=== PATIENT | female | born 1935 | race Caucasian/White ===

== ENCOUNTER → 2023-12-05 08:17 | Outpatient (REF) | payer OTHER, SELFPAY ==
[2023-12-05 09:18] LABS: ALT (SGPT) 18 U/L (0-35); AST (SGOT) 22 U/L (14-36); Albumin 4.1 g/dl (3.5-5.0); Alkaline Phosphatase 72 U/L (38-126); Blood Urea Nitrogen 18 mg/dl (7-17); Calcium 9.4 mg/dl (8.4-10.2); Carbon Dioxide 25 mmol/L (22-30); Chloride 108 mmol/L (98-107); Glucose 113 mg/dl (70-99); HDL Cholesterol 36 mg/dl; Iron 100 ug/dl (37-170); LDL Cholesterol, Calculated 170 mg/dl; Potassium 4.2 mmol/L (3.5-5.1); Sodium 138 mmol/L (135-145); Total Bilirubin 0.9 mg/dl (0.2-1.3); Total Cholesterol 230 mg/dl (50-199); Total Protein 6.3 g/dl (6.3-8.2); Triglyceride 121 mg/dl (10-149); Uric Acid 5.6 mg/dl (2.5-6.2); Very Low Density Lipoprotein 24 mg/dl (0-30); eGFR > 60.00
[2023-12-05 09:27] LABS: Percent Saturation 33 % (20-50); Total Iron Binding Capacity 296 ug/dl (265-497)
[2023-12-05 09:35] LABS: Vitamin D, 25-OH*** 93.8 ng/mL (30-80)
[2023-12-05 10:00] LABS: Ferritin 96.6 ng/ml (11.1-264.0)
[2023-12-07 01:28] LABS: Homocysteine 9 umol/L (0-15)
[2023-12-07 01:31] LABS: DHEA Sulfate 77 ug/dL (12-154)
[2023-12-07 15:33] LABS: CRP, Highly Sensitive 2.48 mg/L
[2023-12-09 02:35] LABS: Methylmalonic Acid <0.10 umol/L (0.00-0.40)
== END ==
LOC: REG 08:17
PROVIDERS: ATTENDING PHYSICIAN Internal Medicine Geriatric Medicine
DX: R42 Dizziness and giddiness (principal); C50.919 Malignant neoplasm of unspecified site of unspecified female breast; M85.80 Other specified disorders of bone density and structure, unspecified site; E78.2 Mixed hyperlipidemia; I10 Essential (primary) hypertension; E03.8 Other specified hypothyroidism; Z96.642 Presence of left artificial hip joint; I48.0 Paroxysmal atrial fibrillation; G47.30 Sleep apnea, unspecified; Z13.89 Encounter for screening for other disorder; K22.70 Barrett's esophagus without dysplasia; Z99.89 Dependence on other enabling machines and devices; I34.0 Nonrheumatic mitral (valve) insufficiency; Z78.9 Other specified health status; N87.9 Dysplasia of cervix uteri, unspecified; G62.9 Polyneuropathy, unspecified; H40.1123 Primary open-angle glaucoma, left eye, severe stage; Z91.81 History of falling; R26.89 Other abnormalities of gait and mobility; R53.1 Weakness
CPT/HCPCS: 36415; 80053; 80061; 82306; 82627; 82728; 83090; 83540; 83550; 83921; 84443; 84550; 86141

== ENCOUNTER → 2023-12-06 08:23 | Outpatient (REF) | payer OTHER, SELFPAY ==
[2023-12-06 09:04] LABS: Erythrocyte Sed Rate 2 mm/hour (0-20)
[2023-12-06 09:23] LABS: C-Reactive Protein < 5.00 mg/L (0.0-10.00)
[2023-12-06 09:40] LABS: Free T4 1.21 ng/dl (0.78-2.19)
[2023-12-07 12:11] LABS: Thyroglobulin Antibodies <0.9 IU/mL (0.0-4.0); Thyroid Peroxidase Ab (TPO) 1.3 IU/mL (0.0-9.0)
[2023-12-07 15:32] LABS: CRP, Highly Sensitive 2.63 mg/L
[2023-12-07 21:04] LABS: Homocysteine 10 umol/L (0-15)
[2023-12-07 21:13] LABS: DHEA Sulfate 83 ug/dL (12-154)
== END ==
LOC: REG 08:23
PROVIDERS: ATTENDING PHYSICIAN Internal Medicine Geriatric Medicine
DX: R42 Dizziness and giddiness (principal); C50.919 Malignant neoplasm of unspecified site of unspecified female breast; M85.80 Other specified disorders of bone density and structure, unspecified site; E78.2 Mixed hyperlipidemia; I10 Essential (primary) hypertension; E03.8 Other specified hypothyroidism; Z96.642 Presence of left artificial hip joint; I48.0 Paroxysmal atrial fibrillation; G47.30 Sleep apnea, unspecified; Z13.89 Encounter for screening for other disorder; K22.70 Barrett's esophagus without dysplasia; Z79.899 Other long term (current) drug therapy; I34.0 Nonrheumatic mitral (valve) insufficiency; Z78.9 Other specified health status; N87.9 Dysplasia of cervix uteri, unspecified; G62.9 Polyneuropathy, unspecified; H40.1123 Primary open-angle glaucoma, left eye, severe stage; Z91.81 History of falling; R26.89 Other abnormalities of gait and mobility; R53.1 Weakness
CPT/HCPCS: 36415; 82627; 83090; 83921; 84439; 85652; 86140; 86141; 86376; 86800

== ENCOUNTER → 2023-12-27 13:57 | Outpatient (REF) | payer OTHER, SELFPAY ==
[2023-12-27 14:46] LABS: % Basophils 0.4 % (0-2); % Immature Granulocytes 0.3 % (0-0.5); % Lymphocytes 31.1 % (20.5-51.1); % Monocytes 10.7 % (1.7-9.3); % Neutrophils 56.5 % (42.2-75.2); Absolute Eosinophils 0.1 10^3/uL (0-0.7); Absolute Lymphocytes 2.4 10^3/uL (1.2-3.4); Absolute Monocytes 0.8 10^3/uL (0.1-0.6); Absolute Neutrophils 4.4 10^3/uL (1.4-6.5); Hematocrit 38.5 % (37.0-47.0); Hemoglobin 12.6 g/dL (12.0-16.0); Mean Corp Hgb Conc. 32.7 g/dL (33.0-37.0); Mean Corpuscular Hgb 32.1 pg (27.0-31.0); Mean Platelet Volume 9.7 fL (7.4-10.4); Nucleated Red Blood Cells % 0 %; Platelet Count 216 10^3/uL (130-400); Red Blood Cell Count 3.93 10^6/uL (4.20-5.40); Red Cell Dist. Width 14.1 % (11.5-14.5); White Blood Cell Count 7.8 10^3/uL (4.8-10.8)
== END ==
LOC: RCS 13:57
PROVIDERS: ATTENDING PHYSICIAN Nurse Practitioner Family; FAMILY PHYSICIAN Internal Medicine Geriatric Medicine
DX: Z01.818 Encounter for other preprocedural examination (principal)
CPT/HCPCS: 36415; 85025; 93005

== ENCOUNTER → 2024-01-15 11:29 | Outpatient (REF) | payer OTHER, SELFPAY ==
[2024-01-15 13:44] LABS: TSH 0.03 uIU/ml (0.47-4.68)
== END ==
LOC: REG 11:29
PROVIDERS: ATTENDING PHYSICIAN Internal Medicine Geriatric Medicine
DX: E66.01 Morbid (severe) obesity due to excess calories (principal); C50.919 Malignant neoplasm of unspecified site of unspecified female breast; R42 Dizziness and giddiness; E78.2 Mixed hyperlipidemia; I10 Essential (primary) hypertension; E03.8 Other specified hypothyroidism; Z96.642 Presence of left artificial hip joint; I48.0 Paroxysmal atrial fibrillation
CPT/HCPCS: 36415; 84443

== ENCOUNTER → 2024-01-24 13:47 | Outpatient (REF) | payer OTHER, SELFPAY ==
[2024-01-24 15:52] LABS: TSH 1.69 uIU/ml (0.47-4.68)
== END ==
LOC: REG 13:47
PROVIDERS: ATTENDING PHYSICIAN Internal Medicine Geriatric Medicine
DX: R79.89 Other specified abnormal findings of blood chemistry (principal)
CPT/HCPCS: 36415; 84443

== ENCOUNTER → 2024-02-13 12:34 | Outpatient (REF) | payer OTHER, SELFPAY | LOC: WDC 12:34 | PROVIDERS: ATTENDING PHYSICIAN Family Medicine Geriatric Medicine; FAMILY PHYSICIAN Internal Medicine Geriatric Medicine | DX: Z12.31 Encounter for screening mammogram for malignant neoplasm of breast (principal) | CPT/HCPCS: 77063; 77067 ==

== ENCOUNTER 2024-03-13 08:10 | Outpatient (RCR) | payer OTHER, SELFPAY | END 2024-03-13 23:59 | disposition home or self-care (01) | LOC: RPT 08:10 | PROVIDERS: ATTENDING PHYSICIAN Internal Medicine Geriatric Medicine | DX: R26.89 Other abnormalities of gait and mobility (principal); R42 Dizziness and giddiness; Z73.6 Limitation of activities due to disability; Z91.81 History of falling | CPT/HCPCS: 97163; 97167; 97530 ==

== ENCOUNTER 2024-04-21 10:12 | Outpatient (RCR) | payer OTHER, SELFPAY | END 2024-04-21 23:59 | disposition home or self-care (01) | LOC: RPT 10:12 | PROVIDERS: ATTENDING PHYSICIAN Internal Medicine Geriatric Medicine | DX: R26.89 Other abnormalities of gait and mobility (principal); R42 Dizziness and giddiness; Z73.6 Limitation of activities due to disability; Z91.81 History of falling | CPT/HCPCS: 97110; 97112; 97116; 97530; 97535 ==

== ENCOUNTER → 2024-04-22 06:27 | Outpatient (REF) | payer OTHER, SELFPAY ==
[2024-04-22] MEDS: LEXISCAN 0.4 MG IV (08:58)
[2024-04-22 11:43] LABS: NT-proBNP 209 pg/ml
== END ==
LOC: RCS 06:27
PROVIDERS: ATTENDING PHYSICIAN Internal Medicine Geriatric Medicine
DX: I48.0 Paroxysmal atrial fibrillation (principal); E66.01 Morbid (severe) obesity due to excess calories; C50.919 Malignant neoplasm of unspecified site of unspecified female breast; R42 Dizziness and giddiness; M85.80 Other specified disorders of bone density and structure, unspecified site; E78.2 Mixed hyperlipidemia; I10 Essential (primary) hypertension; E03.8 Other specified hypothyroidism; Z96.642 Presence of left artificial hip joint; G47.30 Sleep apnea, unspecified; Z13.89 Encounter for screening for other disorder; K22.70 Barrett's esophagus without dysplasia; I34.0 Nonrheumatic mitral (valve) insufficiency; Z78.9 Other specified health status; N87.9 Dysplasia of cervix uteri, unspecified; G62.9 Polyneuropathy, unspecified; H40.1123 Primary open-angle glaucoma, left eye, severe stage; Z91.81 History of falling; R26.89 Other abnormalities of gait and mobility; R53.1 Weakness
CPT/HCPCS: 36415; 78452; 83880; 93017; A9500; J2785

== ENCOUNTER → 2024-04-29 15:59 | Outpatient (REF) | payer OTHER, SELFPAY | LOC: RCS 15:59 | PROVIDERS: ATTENDING PHYSICIAN Internal Medicine Geriatric Medicine | DX: I48.0 Paroxysmal atrial fibrillation (principal); E66.01 Morbid (severe) obesity due to excess calories; C50.919 Malignant neoplasm of unspecified site of unspecified female breast; R42 Dizziness and giddiness; M85.80 Other specified disorders of bone density and structure, unspecified site; E78.2 Mixed hyperlipidemia; I10 Essential (primary) hypertension; E03.8 Other specified hypothyroidism; Z96.642 Presence of left artificial hip joint; G47.30 Sleep apnea, unspecified; Z13.89 Encounter for screening for other disorder; Z99.89 Dependence on other enabling machines and devices; I34.0 Nonrheumatic mitral (valve) insufficiency; Z78.9 Other specified health status; N87.9 Dysplasia of cervix uteri, unspecified; G62.9 Polyneuropathy, unspecified; H40.1123 Primary open-angle glaucoma, left eye, severe stage; Z91.81 History of falling; R26.89 Other abnormalities of gait and mobility; R53.1 Weakness | CPT/HCPCS: 93306 ==

== ENCOUNTER → 2024-05-07 12:25 | Outpatient (REF) | payer OTHER, SELFPAY ==
[2024-05-07 13:32] LABS: C-Reactive Protein < 5.00 mg/L (0.0-10.00)
[2024-05-08 14:36] LABS: Lyme Antibody Screen, EIA Negative (Negative)
[2024-05-10 02:55] LABS: ANA, IgG Reflex to HEp-2 None Detected (None Detected)
== END ==
LOC: REG 12:25
PROVIDERS: ATTENDING PHYSICIAN Internal Medicine Rheumatology; FAMILY PHYSICIAN Internal Medicine Geriatric Medicine
DX: G62.9 Polyneuropathy, unspecified (principal); M81.0 Age-related osteoporosis without current pathological fracture; R26.81 Unsteadiness on feet; Z51.81 Encounter for therapeutic drug level monitoring
CPT/HCPCS: 36415; 84155; 84165; 84425; 86038; 86140; 86235; 86618

== ENCOUNTER 2024-05-22 11:43 | Outpatient (RCR) | payer OTHER, SELFPAY | END 2024-05-22 23:59 | disposition home or self-care (01) | LOC: RPT 11:43 | PROVIDERS: ATTENDING PHYSICIAN Internal Medicine Geriatric Medicine | DX: R42 Dizziness and giddiness (principal); Z91.81 History of falling; Z73.6 Limitation of activities due to disability | CPT/HCPCS: 97110; 97112; 97116; 97530; 97535 ==

== ENCOUNTER 2024-05-29 11:20 | Outpatient (RCR) | payer OTHER, SELFPAY | END 2024-05-29 23:59 | disposition home or self-care (01) | LOC: RPT 11:20 | PROVIDERS: ATTENDING PHYSICIAN Internal Medicine Geriatric Medicine | DX: R26.89 Other abnormalities of gait and mobility (principal); R42 Dizziness and giddiness; Z73.6 Limitation of activities due to disability; Z91.81 History of falling | CPT/HCPCS: 97110; 97112; 97530; 97535 ==

== ENCOUNTER → 2024-06-04 10:55 | Outpatient (REF) | payer OTHER, SELFPAY | LOC: RAD 10:55 | PROVIDERS: ATTENDING PHYSICIAN Internal Medicine Rheumatology; FAMILY PHYSICIAN Internal Medicine Geriatric Medicine | DX: M81.0 Age-related osteoporosis without current pathological fracture (principal) | CPT/HCPCS: 72072; 77080 ==

== ENCOUNTER → 2024-09-18 09:59 | Outpatient (REF) | payer OTHER, SELFPAY | LOC: WDC 09:59 | PROVIDERS: ATTENDING PHYSICIAN Family Medicine Geriatric Medicine; FAMILY PHYSICIAN Internal Medicine Geriatric Medicine | DX: N64.4 Mastodynia (principal); N63.11 Unspecified lump in the right breast, upper outer quadrant; Z85.3 Personal history of malignant neoplasm of breast | CPT/HCPCS: 76642; 77061; 77065 ==

== ENCOUNTER → 2024-12-02 08:08 | Outpatient (REF) | payer OTHER, SELFPAY ==
[2024-12-02 09:07] LABS: % Basophils 0.3 % (0-2); % Eosinophils 1.3 % (0-6); % Immature Granulocytes 0.2 % (0-0.5); % Lymphocytes 30.5 % (20.5-51.1); % Monocytes 8.1 % (1.7-9.3); % Neutrophils 59.6 % (42.2-75.2); Absolute Eosinophils 0.1 10^3/uL (0-0.7); Absolute Lymphocytes 1.8 10^3/uL (1.2-3.4); Absolute Monocytes 0.5 10^3/uL (0.1-0.6); Absolute Neutrophils 3.6 10^3/uL (1.4-6.5); Hemoglobin 13.1 g/dL (12.0-16.0); Mean Corp Hgb Conc. 33.6 g/dL (33.0-37.0); Mean Corpuscular Hgb 33.2 pg (27.0-31.0); Mean Platelet Volume 10.1 fL (7.4-10.4); Nucleated Red Blood Cells % 0 %; Platelet Count 194 10^3/uL (130-400); Red Blood Cell Count 3.94 10^6/uL (4.20-5.40); Red Cell Dist. Width 14.3 % (11.5-14.5)
[2024-12-02 09:22] LABS: ALT (SGPT) 21 U/L (0-35); AST (SGOT) 23 U/L (14-36); Albumin 5.1 g/dl (3.5-5.0); Alkaline Phosphatase 57 U/L (38-126); Blood Urea Nitrogen 24 mg/dl (7-17); Calcium 10.1 mg/dl (8.4-10.2); Carbon Dioxide 26 mmol/L (22-30); Chloride 105 mmol/L (98-107); Glucose 107 mg/dl (70-99); Potassium 4.3 mmol/L (3.5-5.1); Sodium 141 mmol/L (135-145); Total Bilirubin 1.5 mg/dl (0.2-1.3); Total Protein 7.2 g/dl (6.3-8.2); eGFR > 60.00
[2024-12-04 14:34] LABS: Albumin 4.72 g/dL (3.75-5.01); Alpha 1 Globulin 0.29 g/dL (0.19-0.46); Alpha 2 Globulin 0.75 g/dL (0.48-1.05); Free Kappa Light Chains,Quant 10.96 mg/L (3.30-19.40); Free Lambda Light Chains,Quant 1124.72 mg/L (5.71-26.30); IgA 30 mg/dL (68-408); IgG 645 mg/dL (768-1632); IgM 33 mg/dL (35-263); Immunofixation Electrophoresis IFE Done; Kappa/Lambda Fr Light Ratio 0.01 (0.26-1.65)
== END ==
LOC: REG 08:08
PROVIDERS: ATTENDING PHYSICIAN Internal Medicine Rheumatology; FAMILY PHYSICIAN Internal Medicine Geriatric Medicine; OTHER PHYSICIAN Internal Medicine Hematology & Oncology; REFERRING PHYSICIAN Internal Medicine Cardiovascular Disease
DX: M81.0 Age-related osteoporosis without current pathological fracture (principal); Z51.81 Encounter for therapeutic drug level monitoring; I48.0 Paroxysmal atrial fibrillation; C50.411 Malignant neoplasm of upper-outer quadrant of right female breast; D80.1 Nonfamilial hypogammaglobulinemia
CPT/HCPCS: 36415; 80053; 82784; 83521; 84155; 84165; 85025; 86334

== ENCOUNTER → 2025-02-17 12:26 | Outpatient (REF) | payer OTHER, SELFPAY ==
[2025-02-17 13:50] LABS: Calcium 10.1 mg/dl (8.4-10.2)
[2025-02-18 19:12] LABS: Intact PTH 32.4 pg/ml (13.6-85.8)
== END ==
LOC: REG 12:26
PROVIDERS: ATTENDING PHYSICIAN Internal Medicine Geriatric Medicine
DX: I48.0 Paroxysmal atrial fibrillation (principal); E66.01 Morbid (severe) obesity due to excess calories; C50.919 Malignant neoplasm of unspecified site of unspecified female breast; R42 Dizziness and giddiness; M85.80 Other specified disorders of bone density and structure, unspecified site; E78.2 Mixed hyperlipidemia; I10 Essential (primary) hypertension; E03.8 Other specified hypothyroidism; G47.30 Sleep apnea, unspecified; Z99.89 Dependence on other enabling machines and devices; I34.0 Nonrheumatic mitral (valve) insufficiency; G62.9 Polyneuropathy, unspecified; Z91.81 History of falling; R26.89 Other abnormalities of gait and mobility; R53.1 Weakness
CPT/HCPCS: 36415; 83970

== ENCOUNTER → 2025-02-17 12:58 | Outpatient (REF) | payer OTHER, SELFPAY | LOC: WDC 12:58 | PROVIDERS: ATTENDING PHYSICIAN Internal Medicine Hematology & Oncology | DX: Z12.31 Encounter for screening mammogram for malignant neoplasm of breast (principal); C50.411 Malignant neoplasm of upper-outer quadrant of right female breast | CPT/HCPCS: 77063; 77067 ==

== ENCOUNTER → 2025-03-24 08:55 | Outpatient (REF) | payer OTHER, SELFPAY ==
[2025-03-24 09:37] LABS: Hematocrit 39.5 % (37.0-47.0); Hemoglobin 13.4 g/dL (12.0-16.0); Mean Corp Hgb Conc. 33.9 g/dL (33.0-37.0); Mean Corpuscular Volume 98.8 fL (81.0-99.0); Nucleated Red Blood Cells % 0 %; Platelet Count 208 10^3/uL (130-400); Red Cell Dist. Width 14.6 % (11.5-14.5)
[2025-03-24 10:25] LABS: ALT (SGPT) 18 U/L (0-35); AST (SGOT) 19 U/L (14-36); Albumin 4.5 g/dl (3.5-5.0); Alkaline Phosphatase 56 U/L (38-126); Blood Urea Nitrogen 20 mg/dl (7-17); Calcium 9.3 mg/dl (8.4-10.2); Carbon Dioxide 22 mmol/L (22-30); Chloride 110 mmol/L (98-107); Glucose 122 mg/dl (70-99); Potassium 4.6 mmol/L (3.5-5.1); Sodium 142 mmol/L (135-145); Total Protein 6.8 g/dl (6.3-8.2); eGFR > 60.00
[2025-03-27 10:00] LABS: Albumin 4.21 g/dL (3.75-5.01); Free Kappa Light Chains,Quant 13.31 mg/L (3.30-19.40); Free Lambda Light Chains,Quant 1052.03 mg/L (5.71-26.30); Immunofixation Electrophoresis IFE Done; Kappa/Lambda Fr Light Ratio 0.01 (0.26-1.65); Total Protein-Electrophoresis 6.5 g/dL (6.3-8.2)
== END ==
LOC: REG 08:55
PROVIDERS: ATTENDING PHYSICIAN Internal Medicine Hematology & Oncology; FAMILY PHYSICIAN Internal Medicine Geriatric Medicine
DX: C50.411 Malignant neoplasm of upper-outer quadrant of right female breast (principal); M81.0 Age-related osteoporosis without current pathological fracture; D80.1 Nonfamilial hypogammaglobulinemia; D47.2 Monoclonal gammopathy
CPT/HCPCS: 36415; 80053; 82232; 82784; 83521; 84155; 84165; 85025; 86334

== ENCOUNTER → 2025-06-01 12:07 | Outpatient (REF) | payer OTHER, SELFPAY ==
[2025-06-01 12:55] LABS: Hematocrit 37.5 % (37.0-47.0); Hemoglobin 12.2 g/dL (12.0-16.0); Mean Corp Hgb Conc. 32.5 g/dL (33.0-37.0); Mean Corpuscular Volume 99.5 fL (81.0-99.0); Nucleated Red Blood Cells % 0 %; Platelet Count 190 10^3/uL (130-400); Red Cell Dist. Width 15.1 % (11.5-14.5)
[2025-06-01 13:56] LABS: ALT (SGPT) 18 U/L (0-35); AST (SGOT) 21 U/L (14-36); Albumin 4.6 g/dl (3.5-5.0); Alkaline Phosphatase 66 U/L (38-126); Blood Urea Nitrogen 24 mg/dl (7-17); Calcium 9.7 mg/dl (8.4-10.2); Carbon Dioxide 29 mmol/L (22-30); Chloride 107 mmol/L (98-107); Glucose 116 mg/dl (70-99); Potassium 4.8 mmol/L (3.5-5.1); Sodium 143 mmol/L (135-145); Total Protein 6.7 g/dl (6.3-8.2); eGFR > 60.00
== END ==
LOC: REG 12:07
PROVIDERS: ATTENDING PHYSICIAN Internal Medicine Geriatric Medicine
DX: I48.0 Paroxysmal atrial fibrillation (principal); E66.01 Morbid (severe) obesity due to excess calories; R42 Dizziness and giddiness; M85.80 Other specified disorders of bone density and structure, unspecified site; E78.2 Mixed hyperlipidemia; I10 Essential (primary) hypertension; E03.8 Other specified hypothyroidism; G47.30 Sleep apnea, unspecified; I34.0 Nonrheumatic mitral (valve) insufficiency; Z13.89 Encounter for screening for other disorder; G62.9 Polyneuropathy, unspecified; Z91.81 History of falling; R26.89 Other abnormalities of gait and mobility; R53.1 Weakness; I50.31 Acute diastolic (congestive) heart failure
CPT/HCPCS: 36415; 71046; 80053; 83880; 85025

== ENCOUNTER 2025-06-10 15:35 | Emergency (ER) | payer OTHER, SELFPAY ==
[2025-06-10 15:38] VITALS: BP 171/77
--- NOTE | 2025-06-10 17:01 | ED.GENMED ---
History of Present Illness
General
Chief Complaint: Head Injury
Time Seen by Provider: 06/10/25 17:00
History of Present Illness
History of Present Illness:
FOCUSED PAST MEDICAL HISTORY
- The patient has a history of A-fib on Eliquis
REVIEW OF OLD RECORDS
- The patient was seen here after a fall with head injury in September 2023 and at that time CAT scan of the brain was unremarkable
Note:
CHIEF COMPLAINT(S)
Pain and laceration to the head following a fall.
HISTORY OF PRESENT ILLNESS
The patient is an 89-year-old female who presented after a fall at home. The incident occurred as she was moving from the house through the garage to get into the car for a doctors appointment. The patient reports tripping and falling. She is on
anticoagulation therapy, reporting no immediate obvious bleeding based on a preliminary evaluation of the computed tomography (CT) scan, although radiologist confirmation is pending. There is a concern for a laceration on the scalp, which will
require cleaning and potential trimming of hair for proper care. The patient also experiences mild soreness on the upper left side of her chest, identified as a bruise, but she describes the pain as minor.
PHYSICAL EXAM
- General: Well appearing in no distress
- Head: There is a large amount of dried blood and scant amount of ongoing bleeding to the parietal anterior scalp, the laceration is irregular and measures approximately 5 cm
- C-spine: No midline c-spine tenderness; normal AROM of C-spine
- Back: Normal AROM thoracolumbar spine
- HEENT: Moist oral mucosa, no blood
- Cardiovascular: No murmurs, normal heart rate, regular rhythm, No chest wall tenderness
- Pulmonary: No respiratory distress, breath sounds are clear and equal
- Abdomen: Soft with no peritoneal signs, no tenderness
- Neurologic: Excellent strength all extremities, no coordination deficits
- Psychiatric: Appropriate mental status, normal insight and judgement
- Extremities: Nontender, no edema, moves all extremities equally
- Skin: No rash, no lesions, as above, there is also a focal area of ecchymosis to the left anterior chest wall
PLAN
- Await final radiological evaluation of the head CT.
- Assess and clean scalp laceration; may require hair trimming for proper wound care.
- Consider administration of a tetanus booster given the nature of the injury.
DIFFERENTIAL DIAGNOSIS
The Differential Diagnosis includes, in no particular order and is not limited to:
1. Scalp laceration
2. Contusion or minor trauma to the chest wall
3. Intracranial hemorrhage (awaiting final CT results)
4. Soft tissue injury
5. Rib fracture
6. Concussion
7. Cervical spine injury
8. Subdural hematoma
9. Skull fracture
10. Complications related to anticoagulation therapy.
RADIOLOGY
- CAT scan of the brain and C-spine personally reviewed and agree with radiologist interpretation as there is no acute traumatic injury
SUMMARY OF ENCOUNTER
The patient, an 89-year-old female, presented to the emergency department following a fall at home resulting in a scalp laceration. She is on anticoagulation therapy with apixaban (Eliquis). A CT scan was conducted, showing no signs of intracranial
injury, cervical spine injury, or skull fracture. The laceration on her scalp was oozing slightly, and she reported minor bruising on the upper left side of her chest. I placed multiple stitches to close the laceration, and provided instructions on
wound care and pressure application to manage the bleeding. Given her anticoagulation therapy, I advised her to hold apixaban for today and resume it the following day.
PLAN
- Monitor the scalp laceration and maintain pressure to manage bleeding.
- Resume apixaban (Eliquis) the following day as per anticoagulation therapy.
- Consider contacting a neighbor for assistance in getting home, if necessary.
- Consider use of an essie wrap around the chin for added pressure on the wound site.
INDEPENDENT REVIEW OF LABS AND INTERPRETATION OF TESTS
My independent review of the CT scan indicates no intracranial injury, cervical spine injury, or skull fracture.
PROCEDURES
- Laceration repair with multiple stitches to the scalp.
PATIENT EDUCATION AND COUNSELING
The patient was advised on proper wound care, including applying pressure to the bleeding site and using an essie wrap if needed. Counseled on the temporary holding of apixaban today and resuming it the next day.
FOLLOW-UP INSTRUCTIONS
Follow up with primary care physician for wound assessment and management. Contact the office immediately to schedule an appointment if needed.
MEDICATION RECONCILIATION
- Hold apixaban (Eliquis) for today and resume the normal dosing schedule the following day.
MEDICAL DECISION MAKING
- Complexity of Data Reviewed: Chronic conditions affecting care including anticoagulation therapy. Differential diagnoses include scalp laceration, contusion or minor trauma to the chest wall, and intracranial hemorrhage (which was ruled out).
- Data:
Category 1:
My independent interpretation of the CT scan showed no acute intracranial injury.
Category 3:
Discussion of management was contemplated regarding whether to hold apixaban due to ongoing bleeding, with the decision to hold for today and resume tomorrow.
-Risk:
Prescription drug management with apixaban requiring temporary adjustment. Consideration of Admission/Observation: Escalation of care including admission/observation was considered due to anticoagulation therapy and potential complications, but the
patient was deemed safe for outpatient management with close follow up. Work-up was reassuring; it did not reveal any acute life/organ-threatening processes. The patients symptoms were well controlled upon reevaluation; reexamination was reassuring,
vitals stable; the patient was agreeable with discharge and reliable for follow-up.
DIAGNOSIS
- Scalp laceration (ICD-10: S01.01XA)
- Contusion of chest wall (ICD-10: S20.219A)
- Observation of anticoagulation therapy complication (ICD-10: T45.515A)
Despite the closure with sutures, some oozing of blood persists, will place pressure dressing and add TXA to the affected airway. I did use lidocaine with epi before closing the wound. She will hold her next dose of Eliquis.
Past History
Past History
ED Past Medical History: Arrthythmia (Atrial fibrillation), Asthma, HTN, Hypercholesterolemia and Other (Patient has a history of sleep apnea, atrial fibrillation, asthma, or coma, osteoporosis, and benign positional vertigo)
ED Past Surgical History: Tonsilectomy and Other (Patient has also had a hernia repair, tubal ligation, D&C)
Social History
Tobacco: Former smoker
Alcohol: Occasional
Drug: None
Personal:
Living: with family
Family History
Family History: Negative Diabetes, Hypertension or CAD
Phy Exam
Physical Exam
Physical Exam:
See HPI
Course
Orders/Labs/Results
Orders:
Orders
06/10/25 15:39
CT Cervical Spine W/o Iv Contr Urgent
Comment:
Reason For Exam: Trauma
CT Head W/o Iv Contrast Urgent
Comment:
Reason For Exam: Head injury on eliquis
06/10/25 17:52
Tetanus/Diphth/Acelpertussis [Adacel] 0.5 ml IM .ONCE ONE
Vital Signs
Initial and Last Documented VS:
Initial Vital Signs
Temp Pulse Resp BP Pulse Ox
36.9 C 90 16 171/77 97
06/10/25 15:38 06/10/25 15:38 06/10/25 15:38 06/10/25 15:38 06/10/25 15:38
Last Documented Vital Signs
Temp Pulse Resp BP Pulse Ox
36.9 C 85 24 181/69 96
06/10/25 15:38 06/10/25 17:45 06/10/25 17:45 06/10/25 17:26 06/10/25 17:45
Procedures
Laceration Closure
Anterior Head:
Status of Wound: clean
Description of Wound Edges: ragged
Preparation: cleaned with saline
Anesthesia: 1% Lidocaine with epi
Revision/Debridement: routine- no revision
Wound exploration: explored to base- no FB
Type of Closure: single layer closure
Skin Closure Material: 5-0 prolene
Number of sutures: 8
*Pulse Oximetry
SaO2: 97
Oxygen Mode of Delivery: Room air
Patient hypoxic: no
*Critical Care Note
Total Time (30-74mins, 75-104mins- exclusive of procedures): Not Applicable
ED Attending Note
-
Portions of this chart may have been created with voice recognition software.� Occasional wrong word or��sound alike� substitutions may have occurred due to the inherent limitations of voice recognition software.
Discharge Plan
Departure
Patient Disposition: Home (Routine Discharge)
Date of Disposition: 06/10/25
Time of Disposition: 18:07
Patient with high blood pressure during this ER visit?: Yes
Discharge Problem:
Laceration of scalp
Instructions: Laceration Repair With Stitches (DC), BLOOD PRESSURE
Prescriptions:
No Action
wajljjksyxs-kosuhomde-hqo C-Mn 1 TAB tablet
1 tab PO BID
Centrum Silver Ultra Women's 1 EACH tablet
1 ea PO DAILY
omeprazole 20 MG tablet,delayed release (DR/EC)
20 mg PO DAILY
cholecalciferol (vitamin D3) 1,000 UNITS tablet
1,000 units PO DAILY
turmeric root extract 500 MG capsule
1,000 mg PO DAILY
Eliquis 5 MG tablet
5 mg PO BID
magnesium oxide 400 MG tablet
400 mg PO QPM
PROLIA:
1 dose SC [id number]
Prevagen 1 CAPSULE Capsule
1 cap PO DAILY
famotidine [Pepcid AC] 20 MG tablet
20 mg PO QPM
Rocklatan 2.5 ML drops
1 drp BOTH EYES HS
calcium 600 mg Capsule
600 mg PO DAILY
anastrozole 1 mg Tablet
1 mg PO QPM
omega 3-vya-gak-fish oil [Fish Oil] 1,200 (144-216) mg Capsule
1 cap PO BID
lutein
1 tab PO QPM
albuterol sulfate 90 mcg/actuation Hfa Aerosol Inhaler
2 inh INHALATION PRN PRN (Reason: SOB, Wheezes)
Patient Comments:
no longer needs
Referrals:
Jamie Mireles MD [Family Provider, Internal Medicine]
Activity Restrictions/Additional Instructions:
CAT scan of your brain and cervical spine showed no sign of serious injury. I placed 8 stitches in your scalp. This should be removed by your primary care doctor in approximately 7 days. Return here if worse or other concerns.
Discharge Date and Time
Print Language: SERBIAN
[2025-06-10 17:26] VITALS: BP 181/69
[2025-06-10 18:00] VITALS: BP 159/65
[2025-06-10] MEDS: ADACEL 0.5 ML IM (18:11)
== END 2025-06-10 19:54 | disposition home or self-care (01) ==
LOC: EMR 15:35
PROVIDERS: EMERGENCY PHYSICIAN Emergency Medicine; FAMILY PHYSICIAN Internal Medicine Geriatric Medicine
DX: S01.01XA Laceration without foreign body of scalp, initial encounter (principal); I48.91 Unspecified atrial fibrillation; I10 Essential (primary) hypertension; E78.00 Pure hypercholesterolemia, unspecified; J45.909 Unspecified asthma, uncomplicated; G47.30 Sleep apnea, unspecified; M81.0 Age-related osteoporosis without current pathological fracture; Z23 Encounter for immunization; Z79.01 Long term (current) use of anticoagulants; Z87.891 Personal history of nicotine dependence; W01.0XXA Fall on same level from slipping, tripping and stumbling without subsequent striking against object, initial encounter; Y93.01 Activity, walking, marching and hiking; Y92.008 Other place in unspecified non-institutional (private) residence as the place of occurrence of the external cause
CPT/HCPCS: 99284; 12002; 90471; 70450; 72125; 90715

== ENCOUNTER → 2025-06-16 13:58 | Outpatient (REF) | payer OTHER, SELFPAY | LOC: HWRCS 13:58 | PROVIDERS: ATTENDING PHYSICIAN Internal Medicine Geriatric Medicine | DX: I48.0 Paroxysmal atrial fibrillation (principal); E66.01 Morbid (severe) obesity due to excess calories; R42 Dizziness and giddiness; M85.80 Other specified disorders of bone density and structure, unspecified site; E78.2 Mixed hyperlipidemia; I10 Essential (primary) hypertension; E03.8 Other specified hypothyroidism; G47.30 Sleep apnea, unspecified; I34.0 Nonrheumatic mitral (valve) insufficiency; Z13.89 Encounter for screening for other disorder; G62.9 Polyneuropathy, unspecified; Z91.81 History of falling; R26.89 Other abnormalities of gait and mobility; R53.1 Weakness; I50.31 Acute diastolic (congestive) heart failure | CPT/HCPCS: 93306 ==

== ENCOUNTER 2025-06-19 08:15 | Day surgery (SDC) | payer OTHER, SELFPAY ==
[2025-06-19] VITALS (19 sets, daily range): BP systolic 98–157; BP diastolic 40–127; BMI 31.9
[2025-06-19] MEDS: SOLU-CORTEF 100 MG IV (09:04)
[2025-06-19] MEDS: BENADRYL 25 MG IV (09:05)
[2025-06-19] MEDS: PEPCID 20 MG IV (09:24)
[2025-06-19] MEDS: ZOFRAN 4 MG IV (09:25)
[2025-06-19] MEDS: LASIX 20 MG IV (13:38)
--- NOTE | 2025-06-19 15:55 | ITS.CL.PACE ---
[employer] - Pacemaker Implant
Pacemaker Implant
Procedure Report:
Date of Procedure: June 19, 2025.
Procedure: Pacemaker Implantation. Left upper extremity venogram.
Indication: The pacemaker is for the treatment of nonreversible symptomatic bradycardia due to sinus node dysfunction. Known PAF with RVR that is exacerbating HFpEF and mitral regurgitation.
Performing physician: Dheeraj Chun MD, [facility].
Implants:
Pulse Generator: Medtronic; Model# [id number]; Serial# [id number].
RA Lead: Medtronic; Model# 5076-45cm; Serial# [id number].
RV Lead: Medtronic; Model# 3830-69cm; Serial# [id number].
Technique: A time out was performed. A 10 mL upper extremity venogram demonstrated patent the left axillary, cephalic, and subclavian veins. The procedure site was identified. The patient was anesthetized by the anesthesia service. Preoperative
cefazolin was administered. The patient was prepped and draped in the usual fashion. Local anesthetic was applied to the left prepectoral subcutaneous tissue. A 3 inch incision was made along the left deltopectoral groove. Dissection was carried to
the fascia. The left cephalic vein was easily isolated and proximal and distal control with 2-0 Vicryl suture. Using a micropuncture needle to access the cephalic vein under direct visualization a wire was advanced into the central circulation. A 7
Fr introducer was placed to allow two 0.35 J wires to be advanced. The leads were introduced with hemostatic peel away introducer sheaths. The RV lead was placed using utilizing the Lendio His delivery catheter ([id number]) that was advanced to the
left bundle area as confirmed by fluoroscopy in the JAYNA and CONDON projections. The lead tip was advanced. PVC morphology was reviewed. When a satisfactory location was identified (W pattern observed) the lead was screwed into position with serial
turns. Septal engagement was confirmed with gentle torque applied to the guide sheath. After each series of turns (2-3) unipolar sensed morphology and impedance, and paced morphology of V1 was analyzed. The lead was further advanced until
satisfactory morphology and electrical characteristics were confirmed. The RV lead was placed in the second location evaluated. The long guiding sheath was cut and removed from the RV without change in lead position, impedance, sensing, or capture.
The ventricular lead was secured to the pectoralis muscle and fascia with two 0-silk sutures. The atrial lead was placed in the right atrial appendage. 8 volt pacing from each lead did not capture the diaphragm. The atrial leads was secured to the
pectoralis muscle and fascia. A subcutaneous pocket was created with Bovie cautery. Hemostasis was excellent. The leads were appropriately attached to the device. The pocket was irrigated with antibiotic solution. The device and leads were placed in
the pocket. The incision was closed in three layers with absorbable suture. Steri-strips and a silver impregnated dressing were placed. Estimated blood loss was approximately 5 ml. There were no complications. Fluoroscopy time 3.5 minutes and DAP
1.39 GyCM2. The device was then interrogated after skin closure.
Lead Analysis:
RA lead: P: 0.9 mV; Threshold: 1.3 V @ 0.4 ms; Impedance: 418 ohms.
RV lead (bipolar): R: 10.1 mV; Threshold: 0.5 V @ 0.4 ms; Impedance: 684 ohms.
RV lead (unipolar): R: 14.9 mV; Threshold: 0.5 V @ 0.4 ms; Impedance: 741 ohms.
Paced QRS characteristics (both unipolar and bipolar): V1 has Qr morphology and measures 100 ms in duration, LVAT (stim to peak V5/V6) is 60 ms, and R peak V1 to R peak V6 is 46 ms.
Final Programming: MVP (AAIR to DDDR) 60-130 bpm.
Conclusion: Uncomplicated Medtronic pacemaker implant. The pacing system is MRI conditional.
Recommendation: Routine post pacemaker care.
cc: Jamie Mireles MD.
--- NOTE | 2025-06-19 16:07 | CM ---
Referral sent to [facility]. Plan [facility]
--- NOTE | 2025-06-19 17:55 | PTCARENOTE ---
Received pt S/P pacemaker insertion. VSS, monitor showing SR. Ambulated to bathroom with assistance. Left chest pressure dressing c/d/i, +cms to left hand/fingers, immobilizer intact. Assisted to chair, oriented to room, call chavez in reach.
[2025-06-19] MEDS: ANCEF 5 IV (19:39)
[2025-06-19] MEDS: PACERONE 200 MG PO (19:39)
[2025-06-19] MEDS: TOPROL XL PO (21:03)
[2025-06-20] VITALS (9 sets, daily range): BP systolic 84–132; BP diastolic 48–72; PULSE 91; O2SAT 94; BMI 31.3
--- NOTE | 2025-06-20 01:24 | PTCARENOTE ---
Assumed care of patient at change of shift. Pt AAOx3, VSS, denies any pain or discomfort. Ambulates w/ standby assist and has personal cane at bedside. Denies any dizziness. Tele remains NSR. HR in the 60-80's. Left anterior chest w/ pressure
dressing in place and left arm in immobilizer. Educated patient about activity restrictions, and verbalized understanding. Afib packet provided. Fall risk precautions maintained, pt rings approp. Call chavez within reach.
[2025-06-20] MEDS: ANCEF 5 IV (03:56)
[2025-06-20] MEDS: TYLENOL 650 MG PO (04:27)
[2025-06-20 04:32] LABS: Hematocrit 32.3 % (37.0-47.0); Hemoglobin 10.7 g/dL (12.0-16.0); Mean Corp Hgb Conc. 33.1 g/dL (33.0-37.0); Mean Corpuscular Volume 99.1 fL (81.0-99.0); Platelet Count 200 10^3/uL (130-400); Red Cell Dist. Width 15.4 % (11.5-14.5)
[2025-06-20 04:59] LABS: Blood Urea Nitrogen 29 mg/dl (7-17); Calcium 9.7 mg/dl (8.4-10.2); Carbon Dioxide 26 mmol/L (22-30); Chloride 108 mmol/L (98-107); Estimated Creatinine Clearance 48 ml/min; Glucose 106 mg/dl (70-99); Potassium 4.0 mmol/L (3.5-5.1); Sodium 141 mmol/L (135-145); eGFR > 60.00
--- NOTE | 2025-06-20 08:12 | W.PN.CD ---
Addendum entered and electronically signed by Pritesh Sharif MD 06/20/25 14:13:
Echocardiogram showed a small anterior pericardial effusion with no echocardiographic evidence of tamponade. Patient's lightheadedness improved. She is stable for discharge. Will arrange outpatient echo in 2 weeks for follow-up.
Addendum entered and electronically signed by Pritesh Sharif MD 06/20/25 10:06:
I saw and evaluated the patient, and I provided the substantive portion of the medical decision making.
I reviewed and agree with the note by DELORES and it accurately reflects our care.
I personally performed the medical decision making of the this encounter and my assessment and plan is below:
89-year-old female with paroxysmal atrial fibrillation with RVR on Eliquis, HFpEF, and sick sinus syndrome who is s/p PPM on 06/19/2025. This morning she is reporting some pleuritic back pain. She walked with PT and felt lightheaded. BP dropped to
80s/50s. She is attributing this to getting metoprolol this morning which is a new medication for her.
Physical exam: RRR, no murmurs or rubs, clear lungs, no lower extremity edema, pacemaker site is soft without swelling or erythema
Sick sinus syndrome s/p PPM: We will get an echocardiogram to check for effusion given her pleuritic pain and hypotension this morning. Suspect that hypotension may have been iatrogenic from metoprolol. If echocardiogram does not show significant
effusion and her symptoms improve, she could be discharged later today off of metoprolol.
Paroxysmal A-fib with RVR: Continue amiodarone 200 mg twice daily. Hold metoprolol for symptomatic hypotension. Continue Eliquis.
HFpEF: Lasix increased to twice daily dosing with BMP check in 1 week.
Original Note:
Today's Communication / Plan
-
-pacemaker site looks good. Activity restrictions and site care reviewed. Resume Eliquis tomorrow AM. She is now on amiodarone, metoprolol, and increased Lasix dosing. BMP in 1 week. Follow-up in office arranged.
Impression / Plan
-
89 y/o female (Dr. Chun patient) with PAF with RVR on Eliquis as OP, HFpEF, and SSS who is now s/p PPM 06/19/25.
SSS:
-patient with nonreversible symptomatic bradycardia due to sinus node dysfunction. Known PAF with RVR that is exacerbating HFpEF and mitral regurgitation.
-now s/p PPM with Dr. Chun 06/19/25, [employer]tronic- left chest site looks good- no hematoma- we reviewed activity restrictions and site care- follow-up in our office arranged
-EKG , CXR, and tele stable
PAF with RVR:
-now on amiodarone 200 mg PO BID and metoprolol 50 mg PO BID
-resume Eliquis tomorrow AM
HFpEF: chronic
-lasix increased to BID dosing, with BMP check in 1 week- slip provided at d/c.
Subjective:
-Reports some mild chest and back ache, but thinks its musculoskeletal from being scrunched in the bed. Improving with sitting up on side of bed.
Physical Exam
Vital Signs/Labs
Vital Signs
Temp Pulse Resp BP Pulse Ox
98.2 F 80 18 132/60 92
06/20/25 06:39 06/20/25 06:39 06/20/25 06:39 06/20/25 04:02 06/20/25 06:39
06/19/25 06/20/25 06/21/25
06:59 06:59 06:59
Actual Weight 80.1 kg
06/20/25 04:17
06/20/25 04:17
Physical Exam
Constitutional: No acute distress
EENT: Anicteric
Cardiovascular: Rhythm & rate is regular
Respiratory: Respiratory effort normal and Lungs clear to auscul.
Neuro/Psych: AO x 3
Other: Cardiac Device Site (no hematoma, dressing CDI)
Data Reviewed
-
Date of Service: June 20, 2025
EKG: Tracing Personally Visualized and interpreted (NSR) and Other (tele NSR)
Labs: Labs Reviewed by me
[2025-06-20] MEDS: LASIX 20 MG PO (08:17)
[2025-06-20] MEDS: PACERONE 200 MG PO (08:17)
[2025-06-20] MEDS: TOPROL XL 50 MG PO (08:18)
[2025-06-20] MEDS: PROTONIX 40 MG PO (08:18)
--- NOTE | 2025-06-20 12:21 | W.DS.TRANS ---
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
-
Discharge Instructions:
Discharge Diagnosis/Procedures Pacemaker implant
Diet Low Sodium,Restrict fluids to 64 oz
Activity Other activity
Additional Activity see activity restriction sheet attached
Driving Restrictions No driving for 1 week
Bathing Restrictions OK to Shower
Blood Work BMP in 1 week- results to Dr. Chun- slip to be
given at d/c
Specialty Instructions Weigh Daily
Instructions:
Stand-Alone Forms: DC Inst - Implanted Device
Changes to Home Medications: Yes
Discharge Medications:
DC Medications w/original date entered in [facility]
vcatlpufvrc-pglmxneis-uxz C-Mn 750 mg-600 mg-55 mg-5 mg tablet 1 tab PO BID 08/12/10
acbomvok-unvkigx-gilj-lutein tablet (Centrum Silver Ultra Women's tablet) 1 ea PO DAILY 08/12/10
omeprazole 20 mg tablet,delayed release 20 mg PO DAILY 11/13/11
PROLIA: 1 dose SC [id number] 03/07/22
Prevagen 1 cap PO DAILY 03/07/22
cholecalciferol (vitamin D3) 25 mcg (1,000 unit) tablet 1,000 units PO DAILY 03/07/22
magnesium oxide 400 mg PO QPM 03/07/22
famotidine 20 mg tablet (Pepcid AC) 20 mg PO QPM 03/10/22
netarsudil 0.02 %-latanoprost 0.005 % eye drops (Rocklatan) 1 drp BOTH EYES HS 03/10/22
albuterol sulfate 90 mcg/actuation aerosol inhaler 2 inh inhalation PRN PRN SOB, Wheezes 08/02/22
omega 6-rgc-coc-fish oil 1,200 mg (144 mg-216 mg) capsule (Fish Oil) 1 cap PO BID 08/02/22
amiodarone 200 mg tablet (Pacerone) 200 mg PO BID #60 tabs 06/19/25
dorzolamide 2 % eye drops 1 drp ophthalmic (eye) TID 06/19/25
furosemide 20 mg tablet 20 mg PO BID AT 0800,1600 #60 tabs 06/19/25
latanoprost 0.005 % eye drops (Xalatan) 1 drp ophthalmic (eye) QPM 06/19/25
netarsudil 0.02 % eye drops 1 drp ophthalmic (eye) QPM 06/19/25
apixaban 5 mg tablet (Eliquis) 5 mg PO BID #0 tabs 06/20/25 (resume 06/21/25 in AM)
Home Medication Changes
amiodarone added, lasix increased
Pending Results: Yes
--- NOTE | 2025-06-20 13:43 | PTCARENOTE ---
Pt c/o feeling 'lightheaded' this morning. BP was low after having Metoprolol. Pt worked with PT, walked in [place]. Pt had echo today, prior to discharge, Pt was feeling better. Metoprolol was d/c'd by Dr Sharif. Pt's daughter will be staying with
her until June 27, as per Pt.
== END 2025-06-20 14:25 | disposition home or self-care (01) ==
LOC: CATH 08:15
PROVIDERS: Nurse Practitioner; ATTENDING PHYSICIAN Internal Medicine Cardiovascular Disease; FAMILY PHYSICIAN Internal Medicine Geriatric Medicine
DX: I49.5 Sick sinus syndrome (principal); I48.20 Chronic atrial fibrillation, unspecified; I11.0 Hypertensive heart disease with heart failure; I50.33 Acute on chronic diastolic (congestive) heart failure; J45.909 Unspecified asthma, uncomplicated; K21.9 Gastro-esophageal reflux disease without esophagitis; G47.33 Obstructive sleep apnea (adult) (pediatric); M81.0 Age-related osteoporosis without current pathological fracture; E78.5 Hyperlipidemia, unspecified; D75.89 Other specified diseases of blood and blood-forming organs; I34.0 Nonrheumatic mitral (valve) insufficiency; Z79.01 Long term (current) use of anticoagulants; Z79.899 Other long term (current) drug therapy; I48.0 Paroxysmal atrial fibrillation
CPT/HCPCS: 33208; 93325; 93321; 93308; 71045; 80048; 85027; 93005; 97116; 97163; C1769; C1785; C1887; C1898; Q9967

== ENCOUNTER 2025-06-22 18:06 | Inpatient (IN) | payer OTHER, SELFPAY ==
[2025-06-22] VITALS (10 sets, daily range): BP systolic 82–134; BP diastolic 56–88; BMI 30.5; BMI 29.3
--- NOTE | 2025-06-22 15:29 | ED.GENMED ---
History of Present Illness
<Abhijeet Lopez, DO - Last Filed: 06/22/25 21:18>
General
Chief Complaint: Weakness
Source: patient and ambulance crew
Exam Limitations: none
Time Seen by Provider: 06/22/25 15:28
Nursing documentation reviewed up to this point in time: agreed with
<Shana Reyna COMPUTER HARDWARE DEVELOPER - Last Filed: 06/22/25 17:21>
History of Present Illness
History of Present Illness:
89-year-old female with history of asthma, sleep apnea uses CPAP, A-fib on Eliquis, HLD, GERD, breast cancer with lumpectomy, pacemaker placed 3 days ago. She states for the past 2 days she has felt lightheaded, especially when she stands up, has
developed general body aches, bilateral shoulder pains, mid back ache, and mild nausea, no vomiting. Has felt more SOB than usual past 2 days. On arrival, RN reports pulse ox of 90%, placed on 2L NC O2 and now 96%.
Past History
<Abhijeet Lopez, DO - Last Filed: 06/22/25 21:18>
Past History
ED Past Medical History: Arrthythmia (Atrial fibrillation), Asthma, HTN, Hypercholesterolemia and Other (Patient has a history of sleep apnea, atrial fibrillation, asthma, or coma, osteoporosis, and benign positional vertigo)
ED Past Surgical History: Tonsilectomy and Other (Patient has also had a hernia repair, tubal ligation, D&C)
Social History
Tobacco: Former smoker
Alcohol: Occasional
Drug: None
Personal:
Living: with family
Family History
Family History: Negative Diabetes, Hypertension or CAD
Review of Systems
<Shana Reyna, COMPUTER HARDWARE DEVELOPER - Last Filed: 06/22/25 17:21>
Review of Systems
Allergies reviewed?: Yes
All Other Systems: ROS reviewed and negative except as documented in HPI and ROS
Constitutional: Reports fatigue; Denies fever or chills
ABD/GI: Reports constipated (She has been constipated and she took warm prune juice last night and had 2 very good bowel movements today, she thinks her constipation is what has caused her nausea. Denies nausea at this time)
Phy Exam
<Shana Reyna, COMPUTER HARDWARE DEVELOPER - Last Filed: 06/22/25 17:21>
Physical Exam
Physical Exam:
GENERAL: No acute distress. A&Ox3.
CONSTITUTIONAL: Afebrile.
EYES: clear, conjunctivae normal
ENMT: moist mucus membranes, Pharynx nl
RESPIRATORY: Regular respirations, nonlabored, lungs clear. Pulse ox 90% on arrival, placed on 2 L nasal cannula and improved to 96%.
CARDIOVASCULAR: Irregular rhythm, heart rate in the 120s A-fib, no murmurs, no rubs.
GI: Soft, nontender, normal BS
MUSCULOSKELETAL: Moves with ease. Well perfused. No edema
SKIN: Warm, dry, pink
PSYCH: Normal mood and affect. Well kept, interactive and appropriate
NEUROLOGIC: Awake, alert and oriented. No focal neurological deficits
Course
<Abhijeet Lopez, DO - Last Filed: 06/22/25 21:18>
Orders/Labs/Results
Orders:
Orders
06/22/25 Breakfast
Regular
At Your Request: Full Participation
06/22/25 15:18
Electrocardiogram (*1) Urgent
Reason for Study: Shortness of Breath
06/22/25 15:19
EKG- Treatment ONCE
C-Reactive Protein Urgent
Comment: ADD ON
Complete Blood Count/With Diff Urgent
Comprehensive Metabolic Panel Urgent
NT-proBNP Urgent
Comment: ADD ON
Troponin I Urgent
06/22/25 15:39
CR Chest - 2 Views Urgent
Comment:
Reason For Exam: Sob, lightheaded, recent pacemaker
06/22/25 15:48
Influenza A+B Rapid Molecular Urgent
PHONG Source: Nasal Swab
Specimen Description:
06/22/25 15:49
COVID-19 Antigen Urgent
Source: Nasal Swab
06/22/25 15:53
Add On- LAB Urgent
Tests Added?: BNP
06/22/25 16:05
Echo Follow-up Study Stat
Reason for Study: Pericardial effusion
06/22/25 16:40
0.9% Sodium Chloride 500 ml [Nss] 500 ml IV BOLUS
06/22/25 17:00
Colchicine 0.6 mg PO DAILY
06/22/25 17:02
Add On- LAB Routine
Tests Added?: ESR, CRP
06/22/25 17:08
Piperacillin/Tazo 4.5 Gram [Zosyn] 4.5 gram in 100 ml IV NOW
06/22/25 17:15
CT Chest PE Study Urgent
Comment:
Reason For Exam: short of breath
06/22/25 17:31
Blood Culture Q30M
PHONG Source: Blood/Venous
Specimen Description:
Blood Culture Q30M
PHONG Source: Blood/Venous
Specimen Description:
06/22/25 17:42
Admit/Transfer Patient As Directed
Co-Sign Provider:
Level of Care: Inpatient admission
Assign to:: Telemetry
Physician / Group: jose f tobias
Diagnosis: acute hypoxia
Reason for Telemetry: Arrhythmia
Date to Stop Telemetry: 06/25/25
Time to Stop Telemetry: 11:00
Reason for Hospitalization: acute hypoxia
Expected length of stay greater than two midnights?: Yes
ELOS- Estimated Length of Stay in days: 3
I certify the patient meets the requirements for IP care: Yes
PRN Pain Medication Management As Directed
May give lesser potent ordered pain med per pt: Yes
preference::
Protocol:: Medication orders for pain may be administered in a
manner that supports deferring to patient preference
when the pt is:
- Requesting an ordered lesser potent pain medication.
Least to most potent pain medications are defined
as: acetaminophen < NSAID < tramadol < opioids
(morphine, oxycodone, hydromorphone).
- Requesting a lesser dose of the same medication IF
ORDERED.
- Requesting a less intrusive route of administration
if both routes are prescribed by the provider (PO <
IV).
06/22/25 17:43
Code Status As Directed
Resuscitation Status: Do not resuscitate
Reached after discussion with pt or family/Healthcare POA: Yes
DNR Bracelet Application ONCE
06/22/25 17:53
Diphenhydramine [Benadryl] 50 mg IV NOW STA
Hydrocortisone Sod Succinate [Solu-Cortef] 200 mg IV NOW STA
06/22/25 19:25
Acetaminophen [Tylenol] 650 mg PO Q4HPRN PRN
Ipratropium/Albuterol Sulfate [Duoneb] 3 ml INH R Q4HPRN PRN
VANCOMYCIN Pharmacy to Dose [VANCOCIN Pharmacy to Dose] 1 each Pharmacy To Prepare [Call Pharmacy To Prepare] 0 ml IV PER PROTOCOL
06/22/25 19:25
CARDIOLOGY CONSULT Routine
Consulting Provider: Nicholas Pelayo
Was physician already notified: Yes
Legionella Urinary Antigen Routine
PHONG Source: Urine
Specimen Description:
Respiratory Culture/Gram Stain Urgent
PHONG Source: Sputum
Specimen Description:
Strep pneumoniae Antigen Routine
PHONG Source: Urine
Specimen Description:
Activity As Directed
Activity Level: Out of Bed-Early Mobility
Intake/ Output As Directed
Frequency: Per unit guidelines
Vital Signs As Directed
Frequency: Per unit guidelines
Weight As Directed
Frequency: Once
Comment: on admission
O2 Therapy [RESP] Routine
Titrate/Wean O2 to maintain O2 sat greater than (%): 95
Special Instructions: Wean as tolerated
Rx Incentive Spirometry [RESP] Routine
Frequency: q1h while awake
Ot Eval And Treat Routine
Pt Eval And Treat Routine
Activity Level: As Tolerated
Speech Therapy Eval & Treat Routine
06/22/25 20:00
Amiodarone [Pacerone] 200 mg PO BID
Apixaban [Eliquis] 5 mg PO BID
Guaifenesin [Mucinex] 600 mg PO Q12
06/22/25 23:00
Piperacillin/Tazo 3.375 Gram [Zosyn] 3.375 gram in 50 ml IV Q6H
06/23/25 06:00
Echo Follow-up Study IN AM
Reason for Study: pericardial effusion monitoring
Basic Metabolic Panel IN AM
CBC/No Diff [Complete Blood Count/No Diff] IN AM
06/23/25 08:00
Pantoprazole [Protonix] 40 mg PO DAILY
06/24/25 06:00
Basic Metabolic Panel IN AM
06/25/25 06:00
Basic Metabolic Panel IN AM
06/25/25 11:00
DC Protocol for Telemetry ONCE
06/26/25 06:00
Basic Metabolic Panel IN AM
06/27/25 06:00
Basic Metabolic Panel IN AM
Abnormal Lab Results
06/22/25
15:19
WBC 16.1 H 10^3/uL
(4.8-10.8)
RBC 3.35 L 10^6/uL
(4.20-5.40)
Hgb 10.9 L g/dL
(12.0-16.0)
Hct 32.8 L %
(37.0-47.0)
MCH 32.5 H pg
(27.0-31.0)
RDW 15.9 H %
(11.5-14.5)
Abs Immat Gran (auto) 0.1 H 10^3/uL
(0-0.05)
Absolute Neuts (auto) 13.3 H 10^3/uL
(1.4-6.5)
Absolute Lymphs (auto) 1.1 L 10^3/uL
(1.2-3.4)
Absolute Monos (auto) 1.6 H 10^3/uL
(0.1-0.6)
Immature Gran % 0.7 H %
(0-0.5)
Neutrophils % 82.5 H %
(42.2-75.2)
Lymphocytes % 6.9 L %
(20.5-51.1)
Monocytes % 9.8 H %
(1.7-9.3)
BUN 31 H mg/dl
(7-17)
Glucose 153 H mg/dl
(70-99)
Total Bilirubin 2.7 H mg/dl
(0.2-1.3)
C-Reactive Protein 258.30 H mg/L
(0.0-10.00)
06/22/25 15:19
06/22/25 15:19
Vital Signs
Initial and Last Documented VS:
Initial Vital Signs
Pulse Resp Pulse Ox
122 19 93
06/22/25 15:16 06/22/25 15:16 06/22/25 15:16
Last Documented Vital Signs
Temp Pulse Resp BP Pulse Ox
99.9 F 112 18 123/77 95
06/22/25 19:30 06/22/25 19:30 06/22/25 19:30 06/22/25 19:30 06/22/25 19:30
<Shana Reyna, COMPUTER HARDWARE DEVELOPER - Last Filed: 06/22/25 17:21>
Orders/Labs/Results
Orders:
Orders
06/22/25 Breakfast
Regular
At Your Request: Full Participation
06/22/25 15:18
Electrocardiogram (*1) Urgent
Reason for Study: Shortness of Breath
06/22/25 15:19
EKG- Treatment ONCE
C-Reactive Protein Urgent
Comment: ADD ON
Complete Blood Count/With Diff Urgent
Comprehensive Metabolic Panel Urgent
NT-proBNP Urgent
Comment: ADD ON
Troponin I Urgent
06/22/25 15:39
CR Chest - 2 Views Urgent
Comment:
Reason For Exam: Sob, lightheaded, recent pacemaker
06/22/25 15:48
Influenza A+B Rapid Molecular Urgent
PHONG Source: Nasal Swab
Specimen Description:
06/22/25 15:49
COVID-19 Antigen Urgent
Source: Nasal Swab
06/22/25 15:53
Add On- LAB Urgent
Tests Added?: BNP
06/22/25 16:05
Echo Follow-up Study Stat
Reason for Study: Pericardial effusion
06/22/25 16:40
0.9% Sodium Chloride 500 ml [Nss] 500 ml IV BOLUS
06/22/25 17:00
Colchicine 0.6 mg PO DAILY
06/22/25 17:02
Add On- LAB Routine
Tests Added?: ESR, CRP
06/22/25 17:08
Piperacillin/Tazo 4.5 Gram [Zosyn] 4.5 gram in 100 ml IV NOW
06/22/25 17:15
CT Chest PE Study Urgent
Comment:
Reason For Exam: short of breath
06/22/25 17:31
Blood Culture Q30M
PHONG Source: Blood/Venous
Specimen Description:
Blood Culture Q30M
PHONG Source: Blood/Venous
Specimen Description:
06/22/25 17:42
Admit/Transfer Patient As Directed
Co-Sign Provider:
Level of Care: Inpatient admission
Assign to:: Telemetry
Physician / Group: jose f tobias
Diagnosis: acute hypoxia
Reason for Telemetry: Arrhythmia
Date to Stop Telemetry: 06/25/25
Time to Stop Telemetry: 11:00
Reason for Hospitalization: acute hypoxia
Expected length of stay greater than two midnights?: Yes
ELOS- Estimated Length of Stay in days: 3
I certify the patient meets the requirements for IP care: Yes
PRN Pain Medication Management As Directed
May give lesser potent ordered pain med per pt: Yes
preference::
Protocol:: Medication orders for pain may be administered in a
manner that supports deferring to patient preference
when the pt is:
- Requesting an ordered lesser potent pain medication.
Least to most potent pain medications are defined
as: acetaminophen < NSAID < tramadol < opioids
(morphine, oxycodone, hydromorphone).
- Requesting a lesser dose of the same medication IF
ORDERED.
- Requesting a less intrusive route of administration
if both routes are prescribed by the provider (PO <
IV).
06/22/25 17:43
Code Status As Directed
Resuscitation Status: Do not resuscitate
Reached after discussion with pt or family/Healthcare POA: Yes
DNR Bracelet Application ONCE
06/22/25 17:53
Diphenhydramine [Benadryl] 50 mg IV NOW STA
Hydrocortisone Sod Succinate [Solu-Cortef] 200 mg IV NOW STA
06/22/25 19:25
Acetaminophen [Tylenol] 650 mg PO Q4HPRN PRN
Ipratropium/Albuterol Sulfate [Duoneb] 3 ml INH R Q4HPRN PRN
VANCOMYCIN Pharmacy to Dose [VANCOCIN Pharmacy to Dose] 1 each Pharmacy To Prepare [Call Pharmacy To Prepare] 0 ml IV PER PROTOCOL
06/22/25 19:25
CARDIOLOGY CONSULT Routine
Consulting Provider: Nicholas Pelayo
Was physician already notified: Yes
Legionella Urinary Antigen Routine
PHONG Source: Urine
Specimen Description:
Respiratory Culture/Gram Stain Urgent
PHONG Source: Sputum
Specimen Description:
Strep pneumoniae Antigen Routine
PHONG Source: Urine
Specimen Description:
Activity As Directed
Activity Level: Out of Bed-Early Mobility
Intake/ Output As Directed
Frequency: Per unit guidelines
Vital Signs As Directed
Frequency: Per unit guidelines
Weight As Directed
Frequency: Once
Comment: on admission
O2 Therapy [RESP] Routine
Titrate/Wean O2 to maintain O2 sat greater than (%): 95
Special Instructions: Wean as tolerated
Rx Incentive Spirometry [RESP] Routine
Frequency: q1h while awake
Ot Eval And Treat Routine
Pt Eval And Treat Routine
Activity Level: As Tolerated
Speech Therapy Eval & Treat Routine
06/22/25 20:00
Amiodarone [Pacerone] 200 mg PO BID
Apixaban [Eliquis] 5 mg PO BID
Guaifenesin [Mucinex] 600 mg PO Q12
06/22/25 23:00
Piperacillin/Tazo 3.375 Gram [Zosyn] 3.375 gram in 50 ml IV Q6H
06/23/25 06:00
Echo Follow-up Study IN AM
Reason for Study: pericardial effusion monitoring
Basic Metabolic Panel IN AM
CBC/No Diff [Complete Blood Count/No Diff] IN AM
06/23/25 08:00
Pantoprazole [Protonix] 40 mg PO DAILY
06/24/25 06:00
Basic Metabolic Panel IN AM
06/25/25 06:00
Basic Metabolic Panel IN AM
06/25/25 11:00
DC Protocol for Telemetry ONCE
06/26/25 06:00
Basic Metabolic Panel IN AM
06/27/25 06:00
Basic Metabolic Panel IN AM
Abnormal Lab Results
06/22/25
15:19
WBC 16.1 H 10^3/uL
(4.8-10.8)
RBC 3.35 L 10^6/uL
(4.20-5.40)
Hgb 10.9 L g/dL
(12.0-16.0)
Hct 32.8 L %
(37.0-47.0)
MCH 32.5 H pg
(27.0-31.0)
RDW 15.9 H %
(11.5-14.5)
Abs Immat Gran (auto) 0.1 H 10^3/uL
(0-0.05)
Absolute Neuts (auto) 13.3 H 10^3/uL
(1.4-6.5)
Absolute Lymphs (auto) 1.1 L 10^3/uL
(1.2-3.4)
Absolute Monos (auto) 1.6 H 10^3/uL
(0.1-0.6)
Immature Gran % 0.7 H %
(0-0.5)
Neutrophils % 82.5 H %
(42.2-75.2)
Lymphocytes % 6.9 L %
(20.5-51.1)
Monocytes % 9.8 H %
(1.7-9.3)
BUN 31 H mg/dl
(7-17)
Glucose 153 H mg/dl
(70-99)
Total Bilirubin 2.7 H mg/dl
(0.2-1.3)
C-Reactive Protein 258.30 H mg/L
(0.0-10.00)
06/22/25 15:19
06/22/25 15:19
Vital Signs
Initial and Last Documented VS:
Initial Vital Signs
Pulse Resp Pulse Ox
122 19 93
06/22/25 15:16 06/22/25 15:16 06/22/25 15:16
Last Documented Vital Signs
Temp Pulse Resp BP Pulse Ox
99.9 F 112 18 123/77 95
06/22/25 19:30 06/22/25 19:30 06/22/25 19:30 06/22/25 19:30 06/22/25 19:30
State Trooper consulted with Physician
State Trooper consulted with physician?: Yes
Name of Physician Consulted: Jessica
<Shana Reyna COMPUTER HARDWARE DEVELOPER - Last Filed: 06/22/25 17:21>
MDM/Problems Addressed
Differential Diagnosis Includes:
Dehydration, anemia, complication of pacemaker insertion such as pneumothorax,
MDM/Problems Addressed:
89-year-old female with history of asthma, sleep apnea uses CPAP, A-fib on Eliquis, cardiomegaly, CHF, HLD, GERD, breast cancer with lumpectomy, pacemaker placed 3 days ago. She states for the past 2 days she has felt lightheaded, especially when
she stands up, feels very fatigued, has developed general body aches, bilateral shoulder pains, mid back ache, and mild nausea, no vomiting. Has felt more SOB than usual past 2 days. On arrival, RN reports pulse ox of 90%, placed on 2L NC O2 and
now 96%.
Afebrile, NAD
EKG A-fib with RVR rate of 118. There are ST elevations in inferior and lateral leads. Case discussed with Dr. Lopez who notified cardiology
CBC: WBC 16.1 hemoglobin stable at 10.9
CMP: No clinically significant abnormality
Troponin 0.030
4:20 PM:
Cardiology in the room and did bedside US, no pericardial effusion.
Pt to be admitted echo in a.m., Colchecine
5:00 p.m.
Pt in xray
Dr. Lopez to assume care from this point.
<Shana Reyna, COMPUTER HARDWARE DEVELOPER - Last Filed: 06/22/25 17:21>
*Pulse Oximetry
SaO2: 90
Oxygen Mode of Delivery: Room air
Patient hypoxic: yes
Comment: Placed on 2 L nasal cannula oxygen and pulse ox improved to 96%.
*EKG
EKG Intrepretation Date: 06/22/25
Interpretation: abnormal
Heart Rate: 118
Rate: tachycardiac
Rhythm: a-fib
[place]: normal axis
QRS Pattern: normal QRS
*Critical Care Note
Total Time (30-74mins, 75-104mins- exclusive of procedures): Not Applicable
ED Attending Note
<Abhijeet Lopez, DO - Last Filed: 06/22/25 21:18>
ED Attending Note
Patient seen and examined by attending physician: Yes
ED Attending Note:
I have reviewed and agree with treatment plan by Toshia Reyna. My exam revealed
Physical Exam
General: On 2 L nasal cannula
Neck: supple. no meningeal signs. normal posterior pharynx
Heart: s1/s2 tachycardia, no murmur. equal radial
pulses. Pacemaker left upper chest with dressing
HEENT: Pupils equal round reactive to light, EOMI
Lungs: no acute respiratory distress. Left-sided rhonchi
Abdomen: normal bowel sounds. not tender. no CVAT
Neuro: alert and oriented. no focal neurological deficits cranial nerves II through XII intact
Skin: no rash
Psychiatric: well kept. interactive and cooperative
Extremities: no edema. no calf tenderness. negative homans. good distal pulses
89-year-old female with pneumonia, pericarditis. Admit to hospitalist. Zosyn and vancomycin ordered.
-
Portions of this chart may have been created with voice recognition software.� Occasional wrong word or��sound alike� substitutions may have occurred due to the inherent limitations of voice recognition software.
Discharge Plan
Departure
Patient Disposition: Admit
Date of Disposition: 06/22/25
Time of Disposition: 17:13
Presentation/result/management discussed w/ accepting MD/DO: Hospitalist
Patient with high blood pressure during this ER visit?: Yes
Condition: Fair
Discharge Problem:
Pneumonia, Pericarditis
Interventions
Interventions:
*Risk Screen - Suicide Last Done: 06/22/25 19:40
*General Assessment Last Done: 06/22/25 15:20
*Neglect/Abuse Screening Last Done: 06/22/25 15:20
*ED- Fall Risk Assessment Last Done: 06/22/25 15:20
*ED COVID-19 Vaccine History Last Done: 06/22/25 19:40
*ED Influenza Vaccine History Last Done: 06/22/25 15:20
*Nursing Disposition Last Done: 06/22/25 19:19
ED- Cardiac Assessment Last Done: 06/22/25 15:20
ED- Neurological Assessment Last Done: 06/22/25 18:15
ED- Pulmonary Assessment Last Done: 06/22/25 15:20
Discharge Date and Time
Discharge Date/Time: 06/22/25 19:26
[2025-06-22 15:37] LABS: Hematocrit 32.8 % (37.0-47.0); Hemoglobin 10.9 g/dL (12.0-16.0); Mean Corp Hgb Conc. 33.2 g/dL (33.0-37.0); Mean Corpuscular Volume 97.9 fL (81.0-99.0); Nucleated Red Blood Cells % 0 %; Platelet Count 200 10^3/uL (130-400); Red Cell Dist. Width 15.9 % (11.5-14.5)
[2025-06-22 16:01] LABS: ALT (SGPT) 15 U/L (0-35); AST (SGOT) 24 U/L (14-36); Albumin 4.2 g/dl (3.5-5.0); Alkaline Phosphatase 54 U/L (38-126); Blood Urea Nitrogen 31 mg/dl (7-17); Calcium 9.8 mg/dl (8.4-10.2); Carbon Dioxide 27 mmol/L (22-30); Chloride 99 mmol/L (98-107); Estimated Creatinine Clearance 45 ml/min; Glucose 153 mg/dl (70-99); Potassium 4.0 mmol/L (3.5-5.1); Sodium 135 mmol/L (135-145); Total Protein 6.5 g/dl (6.3-8.2); eGFR > 60.00
[2025-06-22 16:13] LABS: Troponin I 0.030 ng/ml
--- NOTE | 2025-06-22 16:32 | CON.CAR ---
Addendum entered and electronically signed by Nicholas Pelayo MD 06/22/25 17:57:
I saw and evaluated the patient, and I provided the substantive portion of the medical decision making.
I reviewed and agree with the note by Ms Correia and it accurately reflects our care.
I personally performed the medical decision making of the this encounter and my assessment and plan is below:
Her symptoms are concerning for possible pericariditis given recent history PPM and echo findings of pericardial effusion. She has CP with deep inspiration and diffuse ST elevations as well. Her echo shows preserved LVEF and no obvious sign of
tamponade.
- echo tomorrow AM
- colchicine for pericarditis
- r/o infection per primary
Original Note:
Consultation
Consultation Request
Date/Time Consultation Requested: 06/22/25 1605
Date/Time Consultation Performed: 06/22/25 1605
Requesting Provider: Dr. Lopez
Performing Provider: Kristel ESTRELLA for Dr. Pelayo
Reason for Consultation: light-headedness, abnormal EKG, SOB, low BP, AFIB
Medical History
-
Chief Complaint: light-headedness with walking
History of Present Illness:
89 y/o female with GERD, dyslipidemia, PAF (remote ablation, recurrence confirmed 11/2024), bradycardia, plasma cell dyscrasia, and HFpEF who had a pacemaker placed by Dr. Chun on 06/19/25. On 06/20/25, she reported some LH with mild hypotension and
metoprolol had just been added so was stopped. There was also some chest discomfort with inspiration. Echo showed small pericardial effusion. She felt better and was sent home. Lasix was increased at d/c and amio was added. She is back with worsened
lightheadedness and weak legs with ambulation. Also some SOB. CP with inspiration is improved, very minimal. She is seen to be in AFIB with RVR. She has diffuse ST elevations. Evaluated at bedside by myself and Dr. Pelayo. Patient looks well. BP
on low end. Bedside echo with normal EF without WMA. Trop is fine. Pericardial effusion noted, but no evidence for tamponade. No distress at the time of my assessment. Family at bedside.
Past Medical History
Past Medical History: Arrhythmias, CHF, GERD, Hypercholesterolemia and Other (as above)
Social History
Tobacco: Former Smoker
Family History
Family History: Reviewed & Not Pertinent
Allergies / Home Medications
Allergy/AdvReac Type Severity Reaction Status Date / Time
Iodinated Contrast Media (IV Allergy Severe Hives, Verified 06/19/25 08:44
Dye, Iodine Containing) fever,
swollen
joints
prochlorperazine (From Allergy Severe Itching of Verified 06/19/25 08:44
Compazine) palm and
feet
atorvastatin AdvReac Severe Leg Verified 06/19/25 08:44
Weakness
ezetimibe (Ezetimibe) AdvReac Severe Leg Verified 06/19/25 08:44
Weakness
rosuvastatin (Rosuvastatin) AdvReac Severe muscle Verified 06/19/25 08:44
aches
Lidocaine Allergy Severe Rash, Uncoded 06/19/25 08:44
Redness
sensitive to most BP Allergy Unknown patient Uncoded 06/19/25 08:44
medications denies
�Medication �Instructions �Recorded �Confirmed �Type
ctnpckwtjcf-awyfonlpl-ood C-Mn 750 1 tab PO BID 08/12/10 06/19/25 History
mg-600 mg-55 mg-5 mg tablet
uayyycba-felhyqw-ynnk-lutein 1 ea PO DAILY 08/12/10 06/19/25 History
tablet (Centrum Silver Ultra
Women's tablet)
omeprazole 20 mg tablet,delayed 20 mg PO DAILY 11/13/11 06/19/25 History
release
PROLIA: 1 dose SC [id number] 03/07/22 06/19/25 History
Prevagen 1 cap PO DAILY 03/07/22 06/19/25 History
cholecalciferol (vitamin D3) 25 1,000 units PO DAILY 03/07/22 06/19/25 History
mcg (1,000 unit) tablet
magnesium oxide 400 mg PO QPM 03/07/22 06/19/25 History
famotidine 20 mg tablet (Pepcid AC) 20 mg PO QPM 03/10/22 06/19/25 History
netarsudil 0.02 %-latanoprost 1 drp BOTH EYES HS 03/10/22 06/19/25 History
0.005 % eye drops (Rocklatan)
albuterol sulfate 90 mcg/actuation 2 inh inhalation PRN PRN SOB, 08/02/22 06/19/25 History
aerosol inhaler Wheezes
omega 5-rum-zrw-fish oil 1,200 mg 1 cap PO BID 08/02/22 06/19/25 History
(144 mg-216 mg) capsule (Fish Oil)
amiodarone 200 mg tablet (Pacerone) 200 mg PO BID #60 tabs 06/19/25 Rx
dorzolamide 2 % eye drops 1 drp ophthalmic (eye) TID 06/19/25 06/19/25 History
furosemide 20 mg tablet 20 mg PO BID AT 0800,1600 #60 tabs 06/19/25 Rx
latanoprost 0.005 % eye drops 1 drp ophthalmic (eye) QPM 06/19/25 06/19/25 History
(Xalatan)
netarsudil 0.02 % eye drops 1 drp ophthalmic (eye) QPM 06/19/25 06/19/25 History
apixaban 5 mg tablet (Eliquis) 5 mg PO BID #0 tabs 06/20/25 06/19/25 Rx
Review of Systems
-
History Source: Patient
All other systems: Negative unless noted
Respiratory: Trouble Breathing
Cardiac: Chest Pain (improved only with inspration)
Neurological: Other (light-headedness and leg weakness with ambulation)
Physical Exam
Vital Signs
Temp Pulse Resp BP Pulse Ox
98.4 F 122 32 132/70 90
06/22/25 15:20 06/22/25 15:30 06/22/25 15:30 06/22/25 15:21 06/22/25 15:59
Lab Results
06/22/25 15:19
06/22/25 15:19
Troponin I 0.030 ng/ml 06/22/25 15:19
Btd-C-Mjvscuocyyq Pept Cancelled 06/22/25 15:39
Physical Exam
General: Well Developed, Well Nourished and No Apparent Distress
HEENT: Normocephalic and Anicteric
Respiratory: Clear and Non Labored Respirations
Cardiac: Irregular Rhythm
Musculoskeletal: Edema (trace BLE edema , improved)
Skin: Warm, Dry and Other (left chest site looks good- dressing CDI)
Neuro: AO x 3
Psych: Calm
Impression / Plan
-
Orthostatic symptoms, hypotension:
-Lasix recently increased - will give back some fluid and monitor
-no fever, elevated WBC noted (though recent procedure). Other w/u such as for infectious process per primary, though will order blood cx.
-bedside echo no evidence for tamponade
Pericardial effusion/pericarditis:
-no evidence for tamponade as above
-repeat study in AM to assess for stability
-add colchicine, at lower dose due to amiodarone use (0.6 mg once daily)
-add on ESR/CRP
AFIB with RVR:
-continue amiodarone and monitor. Metoprolol 50 mg was added on Sunday and she felt LH with this, so no longer on.
-continue Eliquis
SSS/Pacemaker:
-site looks good
-follow telemetry
HFpEF:
-chronic
-small fluid bolus as above
Data Reviewed
-
EKG: Tracing Personally Visualized and interpreted (AFIB with RVR 118 BPM, ST elevation, diffuse)
Medical Tests (Nuc Med, Echo etc): Report Reviewed by me (06/20/25 echo-Normal biventricular size and systolic function without regional wall motion abnormality. LVEF 55-60%. 2. Mild mitral regurgitation. 3. Moderate tricuspid regurgitation. 4.
Small anterior pericardial effusion without echocardiographic evidence of tamponade.)
Labs: Labs Reviewed by me
[2025-06-22 16:57] LABS: COVID-19 Antigen Negative (Negative)
[2025-06-22] MEDS: COLCHICINE 0.6 MG PO (17:14)
[2025-06-22] MEDS: ZOSYN 100 IV (17:17)
[2025-06-22] MEDS: NSS 500 IV (17:17)
--- NOTE | 2025-06-22 17:17 | HPS.HSE ---
Family Physician
-
Family Physician: Jamie Mireles
Chief Complaint
-
cough, sob
History of Present Illness
89-year-old female with history of asthma, sleep apnea uses CPAP, A-fib on Eliquis, HLD, GERD, breast cancer with lumpectomy, pacemaker placed 3 days ago. She states for the past 2 days she has felt lightheaded, especially when she stands up, has
developed general body aches, bilateral shoulder pains, mid back ache, and mild nausea, no vomiting or diarrhea. . Has felt more SOB than usual past 2 days. sob worse with exertion. patient complained of cough. denied fever, chills, chest pain.
denied abdominal pain. denied dysuria or hematuria.
Patient had a fall last Sunday. She was noted to have laceration on her head and which was sutured.
On arrival, RN reports pulse ox of 90%, placed on 2L NC O2 and now 96%. Dose of Zosyn and Vanco in the ER. Patient also received colchicine. Concern for pericarditis, pneumonia. Admitting for further management
Medical History
Past Medical History
Past Medical History: Reports Other
Additional Past Medical History:
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
Past Surgical History: Reports Other
Additional Past Surgical History:
Cardiac ablation, Mohs surgery, left hip replacement right lumpectomy, LEEP, drain placement in left eye, left glaucoma, right ankle, laser surgery
Social History
Tobacco: Former Smoker
Alcohol: Occasional
Drug: None
Living: With Family
Family History
Family History: Not pertinent
Allergies / Home Medications
Allergies reflects when Allergies were last updated in [employer].
Home Medications with original date entered in [employer]
Allergy/Medication List:
Allergies
Allergy/AdvReac Type Severity Reaction Status Date / Time
Iodinated Contrast Media (IV Allergy Severe Hives, Verified 06/19/25 08:44
Dye, Iodine Containing) fever,
swollen
joints
prochlorperazine (From Allergy Severe Itching of Verified 06/19/25 08:44
Compazine) palm and
feet
atorvastatin AdvReac Severe Leg Verified 06/19/25 08:44
Weakness
ezetimibe (Ezetimibe) AdvReac Severe Leg Verified 06/19/25 08:44
Weakness
rosuvastatin (Rosuvastatin) AdvReac Severe muscle Verified 06/19/25 08:44
aches
Lidocaine Allergy Severe Rash, Uncoded 06/19/25 08:44
Redness
sensitive to most BP Allergy Unknown patient Uncoded 06/19/25 08:44
medications denies
Home Medications
uwcxaxbrxxq-qdsmqozal-uty C-Mn 750 mg-600 mg-55 mg-5 mg tablet 1 tab PO BID 08/12/10
fliuguqd-nfybjxn-zhkj-lutein tablet (Centrum Silver Ultra Women's tablet) 1 ea PO DAILY 08/12/10
omeprazole 20 mg tablet,delayed release 20 mg PO DAILY 11/13/11
PROLIA: 1 dose SC Q1XCPBD 03/07/22
Prevagen 1 cap PO DAILY 03/07/22
cholecalciferol (vitamin D3) 25 mcg (1,000 unit) tablet 1,000 units PO DAILY 03/07/22
magnesium oxide 400 mg PO QPM 03/07/22
famotidine 20 mg tablet (Pepcid AC) 20 mg PO QPM 03/10/22
netarsudil 0.02 %-latanoprost 0.005 % eye drops (Rocklatan) 1 drp BOTH EYES HS 03/10/22
albuterol sulfate 90 mcg/actuation aerosol inhaler 2 inh inhalation PRN PRN SOB, Wheezes 08/02/22
omega 4-hml-tlq-fish oil 1,200 mg (144 mg-216 mg) capsule (Fish Oil) 1 cap PO BID 08/02/22
amiodarone 200 mg tablet (Pacerone) 200 mg PO BID #60 tabs 06/19/25
dorzolamide 2 % eye drops 1 drp ophthalmic (eye) TID 06/19/25
furosemide 20 mg tablet 20 mg PO BID AT 0800,1600 #60 tabs 06/19/25
latanoprost 0.005 % eye drops (Xalatan) 1 drp ophthalmic (eye) QPM 06/19/25
netarsudil 0.02 % eye drops 1 drp ophthalmic (eye) QPM 06/19/25
apixaban 5 mg tablet (Eliquis) 5 mg PO BID #0 tabs 06/20/25
Review of Systems
-
Constitutional: Reports Fatigue
EENT: Reports No Symptoms
Respiratory: Reports Cough and Trouble Breathing
Cardiac: Reports No Symptoms
Abdomen/GI: Reports No Symptoms
: Reports No Symptoms
Musculoskeletal: Reports No Symptoms
Skin: Reports No Symptoms
Neurological: Reports No Symptoms
Endocrine: Reports No Symptoms
Hematologic/Lymphatic: Reports No Symptoms
Psych: Reports No Symptoms
Physical Exam
Vital Signs
Vital Signs
Temp Pulse Resp BP Pulse Ox
98.4 F 122 32 132/70 90
06/22/25 15:20 06/22/25 15:30 06/22/25 15:30 06/22/25 15:21 06/22/25 15:59
Physical Exam
General: Well Developed, Well Nourished and No Apparent Distress
HEENT: NormoCephalic, Moist mucous membranes and Atraumatic
Respiratory: Clear
Cardiac: S1/S2 and Regular Rhythm; No Murmur or Rub
GI: Soft, Non Tender, Non Distended and Normal Bowel Sounds; No Organomegaly
Rectal: Deferred by Provider
Musculoskeletal: No Clubbing, No Cyanosis and No Edema
Skin: No Rash
Neuro: AO x 3 and Nonfocal/grossly intact
Psych: Calm
Laboratory Results
-
06/22/25 15:19
06/22/25 15:19
Laboratory Results
Total Bilirubin 2.7 mg/dl (0.2-1.3) H 06/22/25 15:19
AST 24 U/L (14-36) 06/22/25 15:19
ALT 15 U/L (0-35) 06/22/25 15:19
Alkaline Phosphatase 54 U/L (38-126) 06/22/25 15:19
Troponin I 0.030 ng/ml 06/22/25 15:19
Data Reviewed
-
Diagnostic Radiology: Discussed with Physician
Lab Data: Labs Reviewed by me
Impression/Plan
-
# Acute hypoxic respiratory failure secondary to pneumonia
# Sepsis as evident by tachycardia, WBCs 16.1 hypotension
- IV Vanco and Zosyn continued
- Chest x-ray with impression of Moderate retrocardiac left lower lobe opacity, atelectasis and/or pneumonia.Small bilateral pleural effusions. No significant vascular congestion appreciated.
- Continue supplemental oxygen to keep sat greater than 95, wean as tolerated
- Tylenol as needed for fever or pain
- Mucinex for cough
- Nebs as needed for shortness of breath and wheezing
#Pericardial effusion/pericarditis
-bedside ECHO with pericardial effusion
-add colchicine
- ESR/CRP
- CT chest, echo in the a.m.
-cardiology following patient
#AFIB with RVR
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
-continue amiodarone and monitor
#HFpEF:
-chronic
-not in acute exacerbation
-strict I&O,daily weight
-ctm
# Macrocytic anemia
- Hemoglobin 10.9
- No active bleeding
- No continue to monitor
# GERD
- PPI continued
# DVT prophylaxis
- On Eliquis
# CODE STATUS
- DNR
patient recieved Benadryl for CTPE. patient became lethargic with slight left facial droop. no other focal weakness noted. obtaining CT head. neurology made aware as well. thanks
--- NOTE | 2025-06-22 17:30 | TRANSFER ---
Pt arrived from ED by stretcher. Pulled over to hospital bed. Alert and oriented x 2, disoriented to time. Knows the month but not the year. 2L O2 satting at 95%. In ED pt was given a dose of Benadryl for premedication for a CT scan. Pt noted to
have a left facial droop. Upon arrival to the floor pt seems drowsy but alert. No facial droop noted. Mild dysarthria noted, which happens to be new for the pt. Unsure whether the dysarthria is due to the Benadryl or a possible stroke. Pt was seen
by an HAND METHOD LASTING MACHINE OPERATOR in the ED who contributed the facial droop to the Benadryl. Upon arrival to the floor this RN performed an NIH and received a score of 1. Pt sent for Head CT STAT that was ordered in ED. Teresita ESTRELLA notified.
--- NOTE | 2025-06-22 18:03 | W.PN.UPDATE ---
Addendum entered and electronically signed by Jam Lang MD 06/22/25 22:05:
Addendum:
Events noted for AMS s/p IV Benadryl
Before the Benadryl when I saw her, she is lethargic but appropriately interactive, normal speech , symmetric face, symmetric movements of all extremities
Stat HCT - 06/22/25 CT Head W/o Iv Contrast
- Small, localized focus of diminished attenuation measuring approximately 9 mm appears slightly more pronounced associated with the right insular subcortical white matter, raising possibility of evolving ischemic infarct also noted on 06/10/25 HCT
s/p fall
- No acute intracranial hemorrhage.
- No mass effect.
06/10/25 HCT w/o IV contrast
- Mild subcortical, deep, and periventricular white matter low-attenuation, compatible with changes of chronic small vessel ischemic disease.
- Moderate age-related parenchymal atrophy.
- No intra- or extra-axial mass, hemorrhage, or fluid collection.
- Left frontal scalp laceration.
- The caladium is intact. The imaged paranasal sinuses and mastoid air cells are clear. Bilateral ocular lens implants.
- had fall last Sun
Neuro ( Dr Platt ) consulted- suggest CTA H & N
She just received contrast for CTC PE protocol and HX contrast allergy
For MRI H & N and MRA
- c/w Eliquis
Case d/w House and hospitalist APs
Case informed to daughters on Tele
- PPM placed 3 days ago
Original Note:
Update Note
Progress Note Update
This note serves as an addendum to the H&P by senior principal software engineer LORY�
Debra STACY�
HPI
89F HX asthma, KARLA, CPA HS, PAF, on Eliquis, HLD, Breast cancer with lumpectomy, PPM placed 3 days ag seen at ER
- felt postural symptoms - lightheaded with standing up
- general body aches, bilateral shoulder pains, mid back ache
- mild nausea, no vomiting or diarrhea
- Pham than usual past 2 days
- Dry cough
- Patient had a fall last Sunday. She was noted to have laceration on her head and which was sutured.
ROS
denied fever, chills, chest pain. denied abdominal pain. denied dysuria or hematuria.
At ER
POx 90% RA placed on 2L NC O2 and now 96%.
Dose of Zosyn and Vanco in the ER.
received colchicine due to concern for pericarditis
VS
Temp Pulse Resp BP Pulse Ox
98.4 F 122 32 132/70 90
PE
General: NAD
Respiratory: Clear
Cardiac: S1/S2 and Regular Rhythm
GI: Soft, Non Tender, Non Distended
Musculoskeletal: No Edema
Skin: No Rash
Neuro: AO x 3 and Nonfocal/grossly intact
Psych: Calm
Labs
Total Bilirubin 2.7 mg/dl (0.2-1.3) H
AST 24 U/L (14-36)
ALT 15 U/L (0-35)
Alkaline Phosphatase 54 U/L (38-126)
Troponin I 0.030 ng/ml
CXR
- Moderate retrocardiac left lower lobe opacity, atelectasis and/or pneumonia.
- Small bilateral pleural effusions. No significant vascular congestion appreciated.
06/22/25 TTE
1. Normal biventricular size and function without regional wall motion abnormalities.
2. LVEF is 55-60% by visual estimation.
3. No obvious valvular abnormalities on limited 2D echocardiography.
4. Small to moderate pericardial effusion without evidence of tamponade. Small amount of fibrinous material on the anterior portion of the RV free wall.
5. Compared to prior from June 20, 2025, on zlha-tq-nwrq comparison overall size of pericardial effusion is slightly larger.
ASSESSMENT & PLAN
Acute hypoxic RF due to PNA a
Sepsis - tachycardia, WBCs 16.1
Hypotension
- agree with IV Vanco and Zosyn, O2 supplemental oxygen to keep sat greater than 95, wean as tolerated
- Tylenol as needed for fever or pain
- Mucinex for cough
- Nebs as needed for shortness of breath and wheezing
Pericardial effusion/pericarditis
- bedside ECHO with pericardial effusion
- add colchicine
- ESR/CRP
- CT chest, echo in the a.m.
- CBC Card consulted
HX Afib with RVR
HX SSS s/p pacemaker on 03/19
- MACHINE PULLER amiodarone
HX Chr HFpEF:
-chronic
-not in acute exacerbation
- daily Wt
Macrocytic anemia
- Hemoglobin 10.9
- No active bleeding
- No continue to monitor
DVT Px:MACHINE PULLER Eliquis
DNR
IP TLM
[2025-06-22 18:12] LABS: C-Reactive Protein 258.30 mg/L (0.0-10.00)
--- NOTE | 2025-06-22 18:13 | EDCM ---
CM reviewed chart and met with pt and family bedside in ED. Pt lives alone in 2 story home with basement, 3 [address]. First floor half bath, full flight to second floor bedroom and full bath.
Independent in ADLs, personal care and ambulation at baseline. Uses cane when outside the home, also has RW, rollator, shower chair and CPAP.
Confirms prescription coverage.
Hx [facility], no hx SNF.
PCP: Irina Mireles
Pharmacy: [facility]
CM will continue to follow for any discharge planning needs.
[2025-06-22] MEDS: SOLU-CORTEF 200 MG IV (18:33)
[2025-06-22] MEDS: BENADRYL 50 MG IV (18:33)
--- NOTE | 2025-06-22 20:12 | PHA.VAN.IN ---
Assessment
- Assessment
Renal Function: Appears similar to baseline
Concomitant Antimicrobials: piperacillin/tazobactam
AUC Dosing Plan
- Dosing Variables
Dosing Weight (kg): 79.917
Dosing CrCl (ml/min): 45
Vd coefficient (L/kg): 0.7
- Empiric Dosing
Initial / Loading Dose: 2000 mg x 1
Maintenance Regimen: 1000 mg Q24H
Estimated AUC (mcg*h/mL): 437
Estimated Peak (mcg*h/mL): 28.2
Estimated Trough (mcg/ml): 10.8
Estimated Half Life (H): 16.6
- Monitoring
No levels ordered at this time: levels to be ordered during follow-up
MRSA Screen: Ordered per protocol
Pharmacokinetics Vancomycin I
- -
Patient Age: 89
Patient Sex: Female
Vancomycin Day #: 1
Indication: Pulmonary/Respiratory
Requesting Provider: Debra ESTRELLA
Height / Weight:
Height 5 ft 5 in
Actual Weight 79.917 kg
- Vital Signs / Lab Results
Temp Pulse Resp BP Pulse Ox
99.9 F 112 18 123/77 95
06/22/25 19:30 06/22/25 19:30 06/22/25 19:30 06/22/25 19:30 06/22/25 19:30
Lab Results - Hematology
06/22/25
15:19
WBC 16.1 H
Lab Results - Chemistry
06/22/25
15:19
BUN 31 H
Creatinine 0.9
Estimated Creat Clear 45
Albumin 4.2
Microbiology Results
06/22/25 15:48 Influenza Types A & B (ROSALBA) - Final
Nasal Swab Negative for Influenza A & B, NAAT
Negative results must be combined with clinical observations
and patient history.
Nucleic Acid Amplification test (NAAT)performed on the
[employer] platform.
[2025-06-22] MEDS: VANCOCIN 540 MG IV (20:44)
--- NOTE | 2025-06-22 21:00 | PTCARENOTE ---
During the swallow screen included in the NIH assessment, pt developed a cough nursing home through drinking the 3 ounces of water. Per protocol pt should be made NPO. This RN TT Teresita Du to inform her of this, and also to inform her that the pt had PO
Eliquis and Amnio ordered. The reply received was, 'she received Benadryl for CT study she became lethargic from it so give her more time to wake up from it before making her npo.' This RN proceeded to give pt PO meds per orders. Pt started to cough
nursing home through meds. At this time the Head CT results came back stating possibility of evolving ischemic infarct. NPO orders were officially ordered. See Orders.
[2025-06-22] MEDS: ELIQUIS 5 MG PO (21:28)
[2025-06-22] MEDS: MUCINEX 600 MG PO (21:29)
[2025-06-22] MEDS: PACERONE 200 MG PO (21:29)
--- NOTE | 2025-06-22 21:34 | W.PN.UPDATE ---
Addendum entered and electronically signed by DELORES Vázquez 06/22/25 21:39:
neurology made aware.
Original Note:
Update Note
Progress Note Update
CT with the impression of No acute intracranial hemorrhage. No mass effect. Small, localized focus of diminished attenuation measuring approximately 9 mm appears slightly more pronounced associated with the right insular subcortical white matter,
raising possibility of evolving ischemic infarct. will initiated on stroke protocol.
--- NOTE | 2025-06-22 22:42 | PTCARENOTE ---
Pt takes 3 different kinds of eye drops during the day. None seemed to be in the MAR. Pt asking for nighttime eye drops Rhopressa, which she states are the most important ones. TT Teresita Du for an order. See MAR.
[2025-06-23] VITALS (7 sets, daily range): BP systolic 103–131; BP diastolic 63–78; PULSE 85–123; O2SAT 99; BMI 29.5
[2025-06-23] MEDS: ZOSYN 50 IV ×2 (01:19→05:05)
[2025-06-23 05:40] LABS: Hematocrit 29.0 % (37.0-47.0); Hemoglobin 9.6 g/dL (12.0-16.0); Mean Corp Hgb Conc. 33.1 g/dL (33.0-37.0); Mean Corpuscular Volume 99.0 fL (81.0-99.0); Platelet Count 163 10^3/uL (130-400); Red Cell Dist. Width 15.8 % (11.5-14.5)
[2025-06-23] MEDS: VANCOCIN 200 IV (05:44)
[2025-06-23 06:02] LABS: Blood Urea Nitrogen 27 mg/dl (7-17); Calcium 8.8 mg/dl (8.4-10.2); Carbon Dioxide 27 mmol/L (22-30); Chloride 106 mmol/L (98-107); Estimated Creatinine Clearance 50 ml/min; Glucose 147 mg/dl (70-99); HDL Cholesterol 30 mg/dl; LDL Cholesterol, Calculated 99 mg/dl; Potassium 3.9 mmol/L (3.5-5.1); Sodium 137 mmol/L (135-145); Very Low Density Lipoprotein 17 mg/dl (0-30); eGFR > 60.00
--- NOTE | 2025-06-23 08:35 | W.PN.HOSP.TC ---
Today's Communication/Plan
-
see PN
Assessment / Plan
Assessment / Plan
89yo F with PMHX of Afib, COPD, glaucoma, HFpEF, GERD, SSS s/p PPM 3 days before this admission came with worsening back pain across her shoulder blades on inhalation and generalized weakness and lightheadedness on ambulation, found pericardial
effusion, concerning for pericarditis and possible bibasilar pneumonia. HEad CT in ED showed possible evolving R insular subcortical stroke
A/P:
#Acute hypoxic insufficiency on admission 2/2 Possible bibasilar CAP
with leukocytosis and pleuritic pain - reasonable to treat as infectious pneumonia
COVID-19 and Influenza PCR neg
Check legionella and S.pneumonia Ag in urine
Rocephin/DOxy
CTA chest without pulmonary embolism, however study is motion degraded
wean off O2
#Pericrdial effusion
#SSS s/p PPM
#AFib wit RVR on admission
#Chronic HFpEF
without tamponade
serial Echo
telemetry
Colchicin
Card consult
Cont Amiodarone
Hold lasix due to concern with volume depletion on admission
CRP 258.3
ESR pending
#Acute CVA
CT head: Small, localized focus of diminished attenuation measuring approximately 9 mm appears slightly more pronounced associated with the right insular subcortical white matter, raising possibility of evolving ischemic infarct
cont Eliquis
Hx of leg weakness with Zetia and statin - consider PSCK9 inh as outpatient
Cannot do MRI due to recent PPM placement
Neurochecks
follow Neurologyy reccomendations
CHeck TSH, HgbA1c
LDL 99
#mild bilirubinemia
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
no RUQ abd pain
check direct bili, LDH and retics
follow LFT
check blood for parasites
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
cont to follow with previously established oncologist
#mild anemia
check for deficiencies
follow CBC
check FOBT
#Glaucoma
#COPD not in exacerbation
cont home meds
DVT ppx Eliquis
DNR/DNI
I have spent at least 58min reviewing chart, test results, communication with consultants and providing direct patient care
Anticipated Discharge: > 48 hours
Subjective/Interval History
-
Date of Service: June 23, 2025
Objective Data
-
Labs:
Laboratory Results
06/23/25
05:08
WBC 11.4 H
Hgb 9.6 L
Hct 29.0 L
Plt Count 163
Sodium 137
Potassium 3.9
Chloride 106
Carbon Dioxide 27
BUN 27 H
Creatinine 0.8
Glucose 147 H
Calcium 8.8
Vital Signs:
Vital Signs
Temp Pulse Resp BP Pulse Ox
97.1 F 76 20 118/70 91
06/23/25 07:10 06/23/25 07:10 06/23/25 07:10 06/23/25 07:10 06/23/25 07:10
Review of Systems
-
History Source: Patient
All other systems: Reviewed and negative
Respiratory: Reports Trouble Breathing and Pleurisy
Physical Exam
-
General: No Apparent Distress
HEENT: Normocephalic
Respiratory: Clear to Auscultation
Cardiac: Irregular Rhythm
GI: Soft, Nontender and Nondistended
Musculoskeletal: No Clubbing, No Cyanosis and No Edema
Neuro: Awake, Alert, Oriented and AO x 3
Psych: Calm
[2025-06-23] MEDS: PROTONIX PO (08:46)
[2025-06-23] MEDS: COLCHICINE PO (08:46)
[2025-06-23] MEDS: ELIQUIS PO (08:46)
[2025-06-23] MEDS: VIBRAMYCIN PO (08:46)
[2025-06-23] MEDS: MUCINEX PO (08:46)
[2025-06-23] MEDS: PACERONE PO ×3 (08:46→20:18)
[2025-06-23] MEDS: STERILE WATER FOR INJECTION 10 ML IV (08:57)
[2025-06-23] MEDS: ROCEPHIN 1000 MG IV (08:59)
[2025-06-23 09:00] LABS: Glycohemoglobin (HgbA1c) 5.9 % (4.0-5.6)
[2025-06-23] MEDS: TRUSOPT 2% OPHTHALMIC SOLUTION 1 DROP BOTH EYES ×3 (09:00→21:43)
[2025-06-23 09:09] LABS: Reticulocyte Count 2.0 % (0.4-2.8)
[2025-06-23 09:21] LABS: LDH 214 U/L (120-246)
--- NOTE | 2025-06-23 09:32 | CON.NEURO ---
Addendum entered and electronically signed by Parth Platt MD 06/23/25 13:19:
Studies reviewed.
I have personally examined the patient. I reviewed and agree with the KENNEL KEEPER's Note.
My addenda:
Awake, alert, interactive. No acute distress.
Speech intact.
Follows 2-step requests w/o difficulty. No tremor.
Extra-ocular movements grossly intact.
Facial movements full and symmetric. Hearing intact to normal conversational volume.
Normal UE movements bilaterally.
Neck: full ROM.
Chest: no dyspnea
Heart: no JVD
Ext: (-) Clubbing, (-) Cyanosis, (-) Edema
IMPRESSIONS/RECOMMENDATIONS:
Abrupt onset of lightheadedness, most likely secondary to orthostatic hypotension as suggested on testing.
Patient also exhibited a medium sized hypodensity in the right insula, suggestive of subacute ischemic lesion which may also be producing symptoms
Continue to follow orthostatic blood pressures
Provide abdominal binder
Encourage fluids in hopes of reducing risk of orthostasis
Check MRI of brain when possible
Continue anticoagulation with apixaban
Outpatient utilization of PCSK9 inhibitor due to LDL greater than 70
D/W patient / family / nursing
All questions answered.
Will continue to follow as needed.
Original Note:
Documented by User: Nora Hager NP 06/23/25 11:18
Neuro Assessment/Plan
Assessment
Patient is an 89 year old female with PMHX of Afib on Eliquis, COPD, glaucoma, HFpEF, GERD, SSS s/p PPM 3 days before this admission presented to [facility] on 06/22/2025 with worsening back pain across her shoulder blades on inhalation and generalized
weakness and lightheadedness on ambulation, found pericardial effusion, concerning for pericarditis and possible bibasilar pneumonia. Neurology consulted for possible evolving R insular subcortical stroke on head CT in ED.
Head CT: No acute intracranial hemorrhage. No mass effect. Small, localized focus of diminished attenuation measuring approximately 9 mm appears slightly more pronounced associated with the right insular subcortical white matter, raising possibility
of evolving ischemic infarct.
Labs: Cholesterol 146, LDL 99, hgb A1C 5.9, CRP 258.30, TSH 0.22 T4 1.83
Impression:
I. subacute ischemic infarct
II. neuropathy
III. orthostatic hypotension
Plan
-check MRI brain without contrast to evaluate for stroke, may be difficult with pacemaker
-check MRA head and neck since allergic to contrast and had a change in mental status s/p IV Benadryl
-BP goal is normotension.
-continue Eliquis 5 mg BID
-LDL 99 with goal LDL <70, unable to take statins or ezetimibe consider PCSK9 inhibitor
-PT/OT evaluations
-stroke education material to be provided
-continue orthostatic VS BID
-encourage abdominal binder and increase fluid intake
All questions encouraged and answered, plan of care discussed with Dr. Platt, patient and family
Consultation
Order
Date of Consultation: 06/23/25
Requesting Provider: hospitalist
Reason for Consult: stroke
Subjective/Objective
Subjective Data
Date of Service: June 23, 2025
Patient is an 89 year old female with PMHX of Afib on Eliquis, COPD, glaucoma, HFpEF, GERD, neuropathy, SSS s/p PPM who had a pacemaker placed by Dr. Chun on 06/19/25 presented to [facility] on 06/22/2025 with worsening back pain across her shoulder
blades on inhalation and generalized weakness and lightheadedness on ambulation, found pericardial effusion, concerning for pericarditis and possible bibasilar pneumonia. Head CT in ED showed possible evolving R insular subcortical stroke. Patient
had a fall last Sunday. She was noted to have laceration on her head which was sutured. She endorses dyspnea on exertion and difficulty ambulating long distances. She admits to being sedentary. She states she has neuropathy but does not have a
neurologist and is currently not on medication for this. She notes decreased sensation in her feet bilaterally. She has been compliant with her Eliquis and denies bleeding. Her LDL was 99, she is unable to tolerate statins or ezetimibe. Denies
vision changes, denies issues with speech or swallow. Denies issues with bladder/bowel. Denies any focal weakness, numbness or tingling.
Objective Data
Vital Signs
Temp Pulse Resp BP Pulse Ox
97.1 F 76 20 118/70 91
06/23/25 07:10 06/23/25 07:10 06/23/25 07:10 06/23/25 07:10 06/23/25 09:10
Lab Results
06/23/25 05:08
06/23/25 05:08
Sodium 137 mmol/L (135-145) 06/23/25 05:08
Potassium 3.9 mmol/L (3.5-5.1) 06/23/25 05:08
BUN 27 mg/dl (7-17) H 06/23/25 05:08
Glucose 147 mg/dl (70-99) H 06/23/25 05:08
Calcium 8.8 mg/dl (8.4-10.2) 06/23/25 05:08
Ggy-W-Equerlzriwk Pept Cancelled 06/22/25 15:39
LDL Cholesterol, Calc 99 mg/dl 06/23/25 05:08
Patient Allergies
Iodinated Contrast Media (IV Dye, Iodine Containing) Allergy (Severe, Verified 06/19/25 08:44)
Hives, fever, swollen joints
prochlorperazine (From Compazine) Allergy (Severe, Verified 06/19/25 08:44)
Itching of palm and feet
atorvastatin Adverse Reaction (Severe, Verified 06/19/25 08:44)
Leg Weakness
ezetimibe (Ezetimibe) Adverse Reaction (Severe, Verified 06/19/25 08:44)
Leg Weakness
rosuvastatin (Rosuvastatin) Adverse Reaction (Severe, Verified 06/19/25 08:44)
muscle aches
Lidocaine Allergy (Severe, Uncoded 06/19/25 08:44)
Rash, Redness
sensitive to most BP medications Allergy (Unknown, Uncoded 06/19/25 08:44)
patient denies
CVA Assessment
NIH Stroke Score
Level of Consciousness: 0 - Alert
LOC Questions: 0-Answers both correctly
LOC Commands: 0-Performs both correctly
Best Horizontal Gaze: 0-Normal
Visual [place]: 0=Normal, no visual loss
Facial Palsy: 0=Normal, symmetrical
Motor - Right Arm: 0=No drift 10 seconds
Motor - Left Arm: 0=No drift 10 seconds
Motor - Right Le-No drift 5 seconds
Motor - Left Le-No drift 5 seconds
Limb Ataxia: 0-Absent
Sensation: 0-Normal
Best Language: 0-No aphasia
Dysarthria: 0-Normal
Extinction and Inattention: 0-No abnormality
NIH Total Score:: 0
Tenecteplase Contraindications
Inclusion and Exclusion criteria reviewed: Yes
Reasons for NON-Tx with Thrombolytics ABSOLUTE Exclusions: Patient taking oral anticoagulant and last dose within 48 hours
IAT Contraindications: NIHSS < 6
Modified [place] Score (MRS)
-
Modified [place] Scale (mRS): Moderate disability. Requires some help, able to walk unassisted.
Score: 3
Physical Exam
-
General: Comfortable and Appears Stated Age
Eyes: PERRLA
HEENT: Normocephalic, Atraumatic and Anicteric
Neck: Full Range of Motion
Respiratory: Other (SOB)
Cardiac: No JVD
GI: Non-distended
Skin: Unremarkable
Extremities: No Clubbing, No Cyanosis and No Edema
Psych: Anxious
Extended Neurological Exam
Mood & Affect: Anxious
Attention Span & Concentration: Awake, Alert, Interactive and No Difficulty with 2 Step Request
Memory: Unremarkable
Tremor: Hand Tremor Absent and Head Tremor Absent
Speech: Quality Unremarkable, Quantity Unremarkable and Rate of Production Unremarkable
Cranial Nerve II: Left Eye: Visual [place] Intact
Cranial Nerve II: Right Eye: Visual [place] Intact
Cranial Nerves III, IV, : Extraocular Movement: Ptosis on Left
Cranial Nerve VII: Facial Symmetry: Normal Facial Symmetry
Cranial Nerve VIII: Hearing: Unremarkable Hearing to Normal Conversational Volume
Muscle Strength, Overall: Full Throughout
Pronator Drift: No Drift in Upper Extremities and No Drift in Lower Extremities
Touch Sensation: Unremarkable and Double Simultaneous Stimulation Unremarkable
Coordination: Erytlm-bjqq-xxalmu Testing Unremarkable and Reaches for Objects without Difficulty
Medications
-
Active Medications
Generic Name Dose Route Start Last Admin
Trade Name Freq PRN Reason Stop Dose Admin
Acetaminophen 650 mg 06/22/25 21:36
Acetaminophen 650 Mg Rectal Suppository RECTAL 07/20/25 21:35
Q4HPRN PRN
LAYNE, mild pain, or temp >100.4F
Acetaminophen 650 mg 06/22/25 21:36
Acetaminophen 325 Mg Tablet PO 07/20/25 21:35
Q4HPRN PRN
LAYNE, mild pain, or temp >100.4F
Albuterol/Ipratropium 3 ml 06/22/25 19:25
Ipratropium 0.5/Albuterol 3 Mg (3 Ml Ampul) INH
R Q4HPRN PRN
sob/wheezing
Protocol
Amiodarone HCl 200 mg 06/22/25 20:00 06/23/25 08:46
Amiodarone 200 Mg Tablet PO 07/20/25 19:59 Not Given
BID ROBYN
Apixaban 5 mg 06/22/25 20:00 06/23/25 08:46
Apixaban (Eliquis) 5 Mg Tablet PO 07/20/25 19:59 Not Given
BID ROBYN
Ceftriaxone Sodium 1,000 mg 06/23/25 08:00 06/23/25 08:59
Ceftriaxone 1000 Mg / 10 Ml Vial IV 1,000 mg
Q24H ROBYN Administration
Colchicine 0.6 mg 06/22/25 17:00 06/23/25 08:46
Colchicine 0.6 Mg Tablet PO 07/20/25 16:59 Not Given
DAILY ROBYN
Dorzolamide HCl 1 drop 06/23/25 08:00 06/23/25 09:00
Dorzolamide 2% (Ophthalmic Solution) 10 Ml Bottle BOTH EYES 07/21/25 07:59 1 drop
TID ROBYN Administration
Doxycycline Hyclate 100 mg 06/23/25 08:00 06/23/25 08:46
Doxycycline 100 Mg Capsule PO Not Given
Q12 ROBYN
Famotidine 20 mg 06/23/25 18:00
Famotidine 20 Mg Tablet PO 07/21/25 17:59
QPM ROBYN
Guaifenesin 600 mg 06/22/25 20:00 06/23/25 08:46
Guaifenesin 600 Mg Extended Release Tablet PO 07/20/25 19:59 Not Given
Q12 ROBYN
Latanoprost 1 drop 06/22/25 23:54
Latanoprost 0.005% (Ophthalmic Solution) 2.5 Ml Bottle BOTH EYES 07/20/25 21:59
HS ROBYN
(Netarsudil [ 0 drop 06/22/25 23:45
Rhopressa] 0.02 % BOTH EYES 07/20/25 23:44
Drops) Instill One QPM ROBYN
Drop Into Both Eyes
In The Evening
Pantoprazole Sodium 40 mg 06/23/25 08:00 06/23/25 08:46
Pantoprazole 40 Mg Delayed Release Tablet PO 07/21/25 07:59 Not Given
DAILY ROBYN
Sodium Chloride 0 flush 06/22/25 21:00
Sodium Chloride 0.9% (Flush) Syringe IV 07/20/25 20:59
PER PROTOCOL ROBYN
Sterile Water 10 ml 06/23/25 08:00 06/23/25 08:57
Sterile Water For Injection 10 Ml Vial IV 07/21/25 07:59 10 ml
Q24H ROBYN Administration
Home Medications
�Medication �Instructions �Recorded
ycjkkkoqlff-eeqymcsta-ctl C-Mn 750 1 tab PO BID 08/12/10
mg-600 mg-55 mg-5 mg tablet
omeprazole 20 mg tablet,delayed 20 mg PO DAILYPRN PRN gerd 11/13/11
release
Prevagen 1 cap PO DAILY 03/07/22
cholecalciferol (vitamin D3) 25 1,000 units PO DAILY 03/07/22
mcg (1,000 unit) tablet (Vitamin
D3)
magnesium oxide 400 mg PO QPM 03/07/22
famotidine 20 mg tablet (Pepcid AC) 20 mg PO QPM 03/10/22
albuterol sulfate 90 mcg/actuation 2 inh inhalation R Q6HPRN PRN SOB, 08/02/22
aerosol inhaler Wheezes
omega 7-huh-nbo-fish oil 1,200 mg 1 cap PO BID 08/02/22
(144 mg-216 mg) capsule (Fish Oil)
amiodarone 200 mg tablet (Pacerone) 200 mg PO BID #60 tabs 06/19/25
dorzolamide 2 % eye drops 1 drp BOTH EYES TID 06/19/25
latanoprost 0.005 % eye drops 1 drp BOTH EYES HS 06/19/25
(Xalatan)
netarsudil 0.02 % eye drops 1 drp BOTH EYES QPM 06/19/25
(Rhopressa)
apixaban 5 mg tablet (Eliquis) 5 mg PO BID #0 tabs 06/20/25
acetaminophen 500 mg tablet 1,000 mg PO Q6HPRN PRN mild pain 06/22/25
(Tylenol Extra Strength)
furosemide 20 mg tablet 20 mg PO BID 06/22/25
polyethylene glycol 3350 17 gram 17 g PO DAILYPRN PRN constipation 06/22/25
oral powder packet (Miralax)
therapeutic multivitamin 1 tab PO DAILY 06/22/25
Past History
Past History
ED Past Medical History: Arrthythmia (Atrial fibrillation), Asthma, HTN, Hypercholesterolemia and Other (Patient has a history of sleep apnea, atrial fibrillation, asthma, or coma, osteoporosis, and benign positional vertigo)
ED Past Surgical History: Tonsilectomy and Other (Patient has also had a hernia repair, tubal ligation, D&C)
Family/Social History
Tobacco: Former smoker
Alcohol: Occasional
Drug: None
Personal:
Living: with family
Family History: Negative Diabetes, Hypertension or CAD

Documented by User: Parth Platt MD 06/23/25 13:13
CVA Assessment
NIH Stroke Score
NIH Total Score:: 0
Modified [place] Score (MRS)
-
Score: 3
--- NOTE | 2025-06-23 09:41 | W.PN.CD ---
Today's Communication / Plan
-
Colchicine
Close observation
Serial echo's
Check A lead when in sinus
Impression / Plan
-
Pericarditis with small pericardial effusion
- Almost certainly from the pacemaker placement, likely atrial lead related as RV lead is in septum
- Colchicine (at lower dose due to amiodarone use, 0.6 mg once daily)
- No NSAID as she is on Eliquis
- Watch for progression to tamponade
- Plan to continue Eliquis
- When in sinus will check A lead function
- Hope Atrial lead will not need revision
- Serial echo's
Orthostatic symptoms, hypotension:
- Will slow diuresis
PAF
- Continue Amiodarone load
- Continue Eliquis
Sick sinus syndrome
- Pacemaker placed 06/19/2025
HFpEF:
- chronic
- Continue diuresis
Mitral regurgitation
- Mod-severe on recent echo
- Recheck later when on good meds for HFpEF and less AFib (new Amiodarone/pacer support)
Subjective: Chest pain better
Physical Exam
Vital Signs/Labs
Vital Signs
Temp Pulse Resp BP Pulse Ox
97.1 F 76 20 118/70 91
06/23/25 07:10 06/23/25 07:10 06/23/25 07:10 06/23/25 07:10 06/23/25 09:10
06/22/25 06/23/25 06/24/25
06:59 06:59 06:59
Actual Weight 80.314 kg
06/23/25 05:08
06/23/25 05:08
Triglycerides 86 mg/dl (10-149) 06/23/25 05:08
LDL Cholesterol, Calc 99 mg/dl 06/23/25 05:08
VLDL Cholesterol, Calc 17 mg/dl (0-30) 06/23/25 05:08
HDL Cholesterol 30 mg/dl 06/23/25 05:08
Free T4 1.83 ng/dl (0.78-2.19) 06/23/25 05:08
06/22/25 06/22/25
15:19 15:39
Fkx-L-Brljkadmevr Pept 4730 Cancelled
LAB Results
06/22/25
15:19
Troponin I 0.030
Physical Exam
Constitutional: No acute distress
EENT: Anicteric
Cardiovascular: Rhythm/rate is irregular and S1S2 is normal
Respiratory: Respiratory effort normal and Lungs clear to auscul.
GI: Soft and Distention absent
Neuro/Psych: AO x 3 and Motor deficits absent
Data Reviewed
-
Date of Service: June 23, 2025
--- NOTE | 2025-06-23 10:09 | PTOTSP ---
Dysphagia Evaluation:
Given PMH (asthma/sleep apnea, GERD, HTN), current PNA, possible ischemic infarct, and coughing/throat clearing observed during bedside swallow assessment with reported coughing with P.O. intake for approximately 1 year, pt presents w/ chronic and
acute risk factors for aspiration and dysphagia. Unsure if reported and observed dysphagia related to oropharyngeal vs esophageal vs combination. It is recommended that pt receives a VSE to objectively assess for oral-pharyngeal dysphagia.
Recommendations:
1. IDDSI 6 Soft & Bite Size, Single-sips Thins
2. Medications as best tolerated
3. Partial supervision/assistance w/ meals
4. Strategies: Small sips/bites, slow rate of eating, alternating liquid washes, reflux precautions'
5. VSE to objectively determine aspiration occurrence and determine best tolerate diet level
--- NOTE | 2025-06-23 14:26 | PTOTSP ---
Speech Therapy VSE:
Patient presents with functional oral and mild pharyngeal stage of swallowing. There was trace transient penetration (PAS 2) observed across thin and mildly thick liquid trials. No aspiration seen throughout the study. At most, mild pharyngeal
residue observed that cleared with secondary swallow. Esophagus slow to empty per PA-C. Please see patient care note for full details of penetration and swallowing physiology.
Recommend:
1. Continue current diet level of IDDSI Level 6 (soft and bite sized solids) and thin liquids
2. Medications as tolerated
3. Modifiable risk factors for aspiration pneumonia including encouraging frequent and thorough oral care, pulmonary hygiene measures, and increasing physical mobility as medically feasible
4. Aspiration and reflux precautions: upright all meals, small bites/sips, slow rate, cyclic ingestion, dry swallows, upright for 30 minutes following meal completion
5. MUSIC MINISTER to follow for education regarding VSE findings and recommendations, training in swallow precautions, and trials of higher level solids per discretion of MUSIC MINISTER or pt/family wishes
[2025-06-23] MEDS: PEPCID 20 MG PO (17:08)
[2025-06-23] MEDS: VIBRAMYCIN 100 MG PO (20:09)
[2025-06-23] MEDS: ELIQUIS 5 MG PO (20:10)
[2025-06-23] MEDS: MUCINEX 600 MG PO (20:10)
[2025-06-23] MEDS: XALATAN OPHTHALMIC SOLUTION 1 DROP BOTH EYES (21:43)
[2025-06-24] VITALS (8 sets, daily range): BP systolic 108–137; BP diastolic 59–82; PULSE 97–110; O2SAT 95; BMI 29.5
[2025-06-24] MEDS: PEPCID 20 MG PO ×2 (04:52→17:50)
[2025-06-24 05:54] LABS: Hematocrit 32.3 % (37.0-47.0); Hemoglobin 10.3 g/dL (12.0-16.0); Mean Corp Hgb Conc. 31.9 g/dL (33.0-37.0); Mean Corpuscular Volume 100.3 fL (81.0-99.0); Nucleated Red Blood Cells % 0 %; Platelet Count 200 10^3/uL (130-400); Red Cell Dist. Width 15.7 % (11.5-14.5)
[2025-06-24 06:19] LABS: ALT (SGPT) 20 U/L (0-35); AST (SGOT) 28 U/L (14-36); Albumin 3.5 g/dl (3.5-5.0); Alkaline Phosphatase 52 U/L (38-126); Blood Urea Nitrogen 30 mg/dl (7-17); Calcium 8.9 mg/dl (8.4-10.2); Carbon Dioxide 26 mmol/L (22-30); Chloride 107 mmol/L (98-107); Estimated Creatinine Clearance 44 ml/min; Glucose 107 mg/dl (70-99); Iron 54 ug/dl (37-170); Potassium 3.5 mmol/L (3.5-5.1); Sodium 139 mmol/L (135-145); Total Protein 5.9 g/dl (6.3-8.2); eGFR > 60.00
[2025-06-24 06:27] LABS: Total Iron Binding Capacity 253 ug/dl (265-497)
[2025-06-24 06:50] LABS: Ferritin 304.0 ng/ml (11.1-264.0)
[2025-06-24 07:22] LABS: Folate 19.1 ng/ml (2.76-20); Vitamin B12 994 pg/ml (239-931)
[2025-06-24] MEDS: VIBRAMYCIN 100 MG PO ×2 (09:45→20:23)
[2025-06-24] MEDS: COLCHICINE 0.6 MG PO (09:45)
[2025-06-24] MEDS: PACERONE 200 MG PO ×2 (09:45→20:22)
[2025-06-24] MEDS: LASIX 20 MG PO (09:46)
[2025-06-24] MEDS: MUCINEX 600 MG PO ×2 (09:47→20:22)
[2025-06-24] MEDS: ELIQUIS 5 MG PO ×2 (09:47→20:22)
[2025-06-24] MEDS: PROTONIX 40 MG PO (09:47)
[2025-06-24] MEDS: ROCEPHIN 1000 MG IV (09:48)
[2025-06-24] MEDS: TRUSOPT 2% OPHTHALMIC SOLUTION 1 DROP BOTH EYES ×3 (09:48→21:36)
[2025-06-24] MEDS: STERILE WATER FOR INJECTION 10 ML IV (09:49)
--- NOTE | 2025-06-24 10:15 | W.PN.CD ---
Today's Communication / Plan
-
Echo Sunday and if stable then ok for home
Monitor closely for progression to tamponade
3 months of Colchicine then Stop
Amio 200 bid for 30 days then lower to one time a day
Wean O2 to off
Increase activity
Continue daily oral Lasix
Impression / Plan
-
Pericarditis with small pericardial effusion
- Stable effusion by echo 06/23/2025
- CHEST PAIN HAS RESOLVED
- Almost certainly from the pacemaker placement, likely atrial lead related as RV lead is in septum
- Colchicine (at lower dose due to amiodarone use, 0.6 mg once daily)
- No NSAID as she is on Eliquis
- Watch for progression to tamponade
- Plan to continue Eliquis
- When in sinus will check A lead function
- Hope Atrial lead will not need revision
- Serial echo's
Orthostatic symptoms, hypotension:
- Diuresis slowed to one time oral Lasix
Abnl CXR
- Still on ATBs
- On low dose oral Lasix
PAF
- Continue Amiodarone load
- Continue Eliquis
Sick sinus syndrome
- Pacemaker placed 06/19/2025
HFpEF:
- chronic
- Continue diuresis
Mitral regurgitation
- Mod-severe on recent echo
- Recheck later when on good meds for HFpEF and less AFib (new Amiodarone/pacer support)
Subjective: Chest pain gone!
Physical Exam
Vital Signs/Labs
Vital Signs
Temp Pulse Resp BP Pulse Ox
97.8 F 101 19 118/74 95
06/24/25 07:00 06/24/25 07:00 06/24/25 07:00 06/24/25 07:00 06/24/25 07:00
06/23/25 06/24/25 06/25/25
06:59 06:59 06:59
Actual Weight 80.314 kg 80.467 kg
06/24/25 05:05
06/24/25 05:05
Triglycerides 86 mg/dl (10-149) 06/23/25 05:08
LDL Cholesterol, Calc 99 mg/dl 06/23/25 05:08
VLDL Cholesterol, Calc 17 mg/dl (0-30) 06/23/25 05:08
HDL Cholesterol 30 mg/dl 06/23/25 05:08
Free T4 1.83 ng/dl (0.78-2.19) 06/23/25 05:08
06/22/25 06/22/25
15:19 15:39
Iqe-Y-Hoklhmmrxtt Pept 4730 Cancelled
LAB Results
06/22/25
15:19
Troponin I 0.030
Physical Exam
Constitutional: No acute distress
EENT: Anicteric
Cardiovascular: Rhythm/rate is irregular and Rub absent
Respiratory: Respiratory effort normal and Lungs clear to auscul.
GI: Soft and Distention absent
Neuro/Psych: AO x 3 and Motor deficits absent
Data Reviewed
-
Date of Service: June 24, 2025
--- NOTE | 2025-06-24 11:38 | W.PN.HOSP.TC ---
Today's Communication/Plan
-
cont Abx
Echo on 06/26/25, if without changes - D/C as per card
Assessment / Plan
Assessment / Plan
89yo F with PMHX of Afib, COPD, glaucoma, HFpEF, GERD, SSS s/p PPM 3 days before this admission came with worsening back pain across her shoulder blades on inhalation and generalized weakness and lightheadedness on ambulation, found pericardial
effusion, concerning for pericarditis and possible bibasilar pneumonia. HEad CT in ED showed possible evolving R insular subcortical stroke
A/P:
#Acute hypoxic insufficiency on admission 2/2 Possible bibasilar CAP
with leukocytosis and pleuritic pain - reasonable to treat as infectious pneumonia
COVID-19 and Influenza PCR neg
legionella and S.pneumonia Ag in urine WNL
Rocephin/DOxy
CTA chest without pulmonary embolism, however study is motion degraded
wean off O2
#Pericardial effusion
#SSS s/p PPM
#AFib wit RVR on admission
#Chronic HFpEF
without tamponade
serial Echo
telemetry
Colchicine
Card consult: Echo on 06/26/25, if without changes - D/C as per card
Cont Amiodarone
Lasix changed to daily from BID
CRP 258.3
ESR 75
cont outpatient serial ESR/CRP
#Acute CVA
CT head: Small, localized focus of diminished attenuation measuring approximately 9 mm appears slightly more pronounced associated with the right insular subcortical white matter, raising possibility of evolving ischemic infarct
cont Eliquis
Hx of leg weakness with Zetia and statin - consider PCSK9 inh as outpatient
Cannot do MRI due to recent PPM placement
Neurochecks
follow Neurology recommendations: cont Eliquis
HgbA1c 5.9% - low carb diet since criteria for preDM
LDL 99
#Subclinical hypothyroidism
repeat TSH in 2-3 weeks with PCP
#mild mostly indirect bilirubinemia
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
no RUQ abd pain
LDH and retics WNL - GIlberts? improving. Outpatient LFT follow up with PCP
follow LFT
check blood for parasites
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
cont to follow with previously established oncologist
#mild anemia
check for deficiencies
follow CBC
check FOBT
#Glaucoma
#COPD not in exacerbation
cont home meds
DVT ppx Eliquis
DNR/DNI
I have spent at least 38min reviewing chart, test results, communication with consultants and providing direct patient care
Anticipated Discharge: 24 - 48 hours
Subjective/Interval History
-
Date of Service: June 24, 2025
Objective Data
-
Labs:
Laboratory Results
06/24/25
05:05
WBC 9.1
Hgb 10.3 L
Hct 32.3 L
Plt Count 200 D
Sodium 139
Potassium 3.5
Chloride 107
Carbon Dioxide 26
BUN 30 H
Creatinine 0.9
Glucose 107 H
Calcium 8.9
Total Bilirubin 1.5 H D
AST 28
ALT 20
Alkaline Phosphatase 52
Vital Signs:
Vital Signs
Temp Pulse Resp BP Pulse Ox
98.2 F 86 18 129/71 95
06/24/25 11:00 06/24/25 11:00 06/24/25 11:00 06/24/25 11:00 06/24/25 11:00
Review of Systems
-
History Source: Patient
All other systems: Reviewed and negative
Physical Exam
-
General: Comfortable
HEENT: Normocephalic
Cardiac: Regular Rhythm
GI: Soft, Nontender and Nondistended
Musculoskeletal: No Clubbing, No Cyanosis and No Edema
Neuro: Awake, Alert, Oriented and AO x 3
Psych: Calm
[2025-06-24] MEDS: TUMS CHEWABLE TABLET 200 MG PO (12:48)
--- NOTE | 2025-06-24 16:23 | PTOTSP ---
Speech Therapy Follow-Up:
Pt received awake in bed w/ daughter at bedside. Baseline cough noted in conversation. Pt reports discomfort from reflux this date impacting oral intake. Results of VSE reviewed w/ pt and daughter. Pt took two sequential sips of thins from straw w/
no overt s/s of aspiration. Pt self-fed bites of sushma cracker. Reported baseline fast-pace when eating.
Cough noted x1 when discussing plan after P.O. trials. Do not suspect related to prandial aspiration. Potentially related to esophageal issues (follows with GI, esophagus slow to empty on VSE, noting reflux currently).
Recommendations:
1. Regulars, Thins
2. Medications as best tolerated
3. Partial assistance/supervision w/ meals
4. Strategies: Single sips/small bites, slow rate of eating, alternating liquid wash, reflux precautions
5. F/U w/ ST for cognitive-linguistic assessment administration. Further dysphagia tx not indicated.
--- NOTE | 2025-06-24 17:14 | CM ---
PT OT indicates SNF .
Spoke with efren Dominguez [phone] at bedside . PAC data given .
They [facility] Ref[facility] placed.
Will need auth
PLAN Locate SNF obtained auth
[2025-06-24] MEDS: NON-FORMULARY ITEM 1 DROP BOTH EYES (20:24)
[2025-06-24] MEDS: XALATAN OPHTHALMIC SOLUTION 1 DROP BOTH EYES (21:36)
[2025-06-25] VITALS (7 sets, daily range): BP systolic 122–159; BP diastolic 68–87; PULSE 97–117; O2SAT 94; BMI 29.5
[2025-06-25 06:21] LABS: ALT (SGPT) 29 U/L (0-35); AST (SGOT) 35 U/L (14-36); Albumin 3.3 g/dl (3.5-5.0); Alkaline Phosphatase 50 U/L (38-126); Blood Urea Nitrogen 26 mg/dl (7-17); Calcium 8.7 mg/dl (8.4-10.2); Carbon Dioxide 24 mmol/L (22-30); Chloride 106 mmol/L (98-107); Estimated Creatinine Clearance 50 ml/min; Glucose 110 mg/dl (70-99); Potassium 3.5 mmol/L (3.5-5.1); Sodium 137 mmol/L (135-145); Total Protein 5.6 g/dl (6.3-8.2); eGFR > 60.00
[2025-06-25] MEDS: PROTONIX 40 MG PO (08:37)
[2025-06-25] MEDS: PACERONE 200 MG PO ×2 (08:37→20:11)
[2025-06-25] MEDS: MUCINEX 600 MG PO ×2 (08:37→20:11)
[2025-06-25] MEDS: ELIQUIS 5 MG PO ×2 (08:38→20:12)
[2025-06-25] MEDS: STERILE WATER FOR INJECTION 10 ML IV (08:38)
[2025-06-25] MEDS: ROCEPHIN 1000 MG IV (08:38)
[2025-06-25] MEDS: VIBRAMYCIN 100 MG PO ×2 (08:38→20:11)
[2025-06-25] MEDS: LASIX 20 MG PO (08:38)
[2025-06-25] MEDS: TRUSOPT 2% OPHTHALMIC SOLUTION 1 DROP BOTH EYES ×3 (08:39→20:58)
[2025-06-25] MEDS: COLCHICINE 0.6 MG PO (08:43)
--- NOTE | 2025-06-25 08:55 | W.PN.CD ---
Today's Communication / Plan
-
echo tomorrow
Impression / Plan
-
Pericarditis with small pericardial effusion
- Stable effusion by echo 06/23/2025
- CHEST PAIN HAS RESOLVED
- Almost certainly from the pacemaker placement, likely atrial lead related as RV lead is in septum
- Colchicine (at lower dose due to amiodarone use, 0.6 mg once daily)
- No NSAID as she is on Eliquis
- Watch for progression to tamponade
- Plan to continue Eliquis
- When in sinus will check A lead function
- Hope Atrial lead will not need revision
- Serial echo's
Orthostatic symptoms, hypotension:
- Diuresis slowed to one time oral Lasix
Abnl CXR
- Still on ATBs
- On low dose oral Lasix
PAF
- Continue Amiodarone load
-would favor restoring sinus after recovery from acute pericarditis as op
- Continue Eliquis
Sick sinus syndrome
- Pacemaker placed 06/19/2025
HFpEF:
- chronic
- Continue chronic diuretic
Mitral regurgitation
- Mod-severe on recent echo
- Recheck later when on good meds for HFpEF and less AFib (new Amiodarone/pacer support)
Subjective: Chest pain resolved
Physical Exam
Vital Signs/Labs
Vital Signs
Temp Pulse Resp BP Pulse Ox
98.3 F 104 14 133/73 95
06/25/25 07:39 06/25/25 07:39 06/25/25 07:39 06/25/25 07:39 06/25/25 07:39
06/24/25 06/25/25 06/26/25
06:59 06:59 06:59
Actual Weight 177 lb 6.4 oz 177 lb 2 oz
06/24/25 05:05
06/25/25 05:14
Triglycerides 86 mg/dl (10-149) 06/23/25 05:08
LDL Cholesterol, Calc 99 mg/dl 06/23/25 05:08
VLDL Cholesterol, Calc 17 mg/dl (0-30) 06/23/25 05:08
HDL Cholesterol 30 mg/dl 06/23/25 05:08
Free T4 1.83 ng/dl (0.78-2.19) 06/23/25 05:08
06/22/25 06/22/25
15:19 15:39
Gdh-V-Iunbndhahez Pept 4730 Cancelled
LAB Results
06/22/25
15:19
Troponin I 0.030
Physical Exam
Constitutional: No acute distress
Cardiovascular: Pedal edema is absent, JVD pressure is normal, Systolic murmur absent, Diastolic murmur absent and Rhythm/rate is irregular
Respiratory: Respiratory effort normal, Lungs clear to auscul., Wheeze Absent and Crackles Absent
Neuro/Psych: AO x 3
Data Reviewed
-
Date of Service: June 25, 2025
Medical Decision Making: Review of Case with other Provider (Dr Tejeda echo tomorrow)
EKG: Other (tele fib)
--- NOTE | 2025-06-25 09:58 | W.PN.HOSP.TC ---
Today's Communication/Plan
-
cont Abx - plan total 7 days
Echo in AM
US RUQ
follow LFT and BMP
Assessment / Plan
Assessment / Plan
89yo F with PMHX of Afib, COPD, glaucoma, HFpEF, GERD, SSS s/p PPM 3 days before this admission came with worsening back pain across her shoulder blades on inhalation and generalized weakness and lightheadedness on ambulation, found pericardial
effusion, concerning for pericarditis and possible bibasilar pneumonia. HEad CT in ED showed possible evolving R insular subcortical stroke
Breast mass and need to follow up with established breast surgeon was discussed with daughter over tghe phone. Also discussed need in repeated LFT, eventual MRI brain, TFT - daughter verbalized understanding of the instrcutions
A/P:
#Acute hypoxic insufficiency on admission 2/2 Possible bibasilar CAP
with leukocytosis and pleuritic pain - reasonable to treat as infectious pneumonia
COVID-19 and Influenza PCR neg
legionella and S.pneumonia Ag in urine WNL
Rocephin/DOxy
CTA chest without pulmonary embolism, however study is motion degraded
weaned off O2 as of 06/25/25
#Pericardial effusion
#SSS s/p PPM
#AFib wit RVR on admission
#Chronic HFpEF
without tamponade
serial Echo
telemetry
Colchicine
Card consult: Echo on 06/26/25, if without changes - D/C as per card
Cont Amiodarone
Lasix changed to daily from BID
CRP 258.3
ESR 75
cont outpatient serial ESR/CRP
#Acute CVA
CT head: Small, localized focus of diminished attenuation measuring approximately 9 mm appears slightly more pronounced associated with the right insular subcortical white matter, raising possibility of evolving ischemic infarct
cont Eliquis
Hx of leg weakness with Zetia and statin - consider PCSK9 inh as outpatient
Cannot do MRI due to recent PPM placement
Neurochecks
follow Neurology recommendations: cont Eliquis
HgbA1c 5.9% - low carb diet since criteria for pre-DM
LDL 99
#Subclinical hypothyroidism
repeat TSH in 2-3 weeks with PCP
#mild mostly indirect bilirubinemia
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
no RUQ abd pain
LDH and retics WNL - Gilbert? improving. Outpatient LFT follow up with PCP
follow LFT
US RUQ reasonable since persistent
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
cont to follow with previously established oncologist
#mild anemia of chronic disease
follow CBC
check FOBT, but stool is reportedly brown
#Glaucoma
#COPD not in exacerbation
cont home meds
DVT ppx Eliquis
DNR/DNI
I have spent at least 36min reviewing chart, test results, communication with consultants and providing direct patient care
Anticipated Discharge: Within 24 hours
Subjective/Interval History
-
Date of Service: June 25, 2025
Objective Data
-
Labs:
Laboratory Results
06/25/25
05:14
Sodium 137
Potassium 3.5
Chloride 106
Carbon Dioxide 24
BUN 26 H
Creatinine 0.8
Glucose 110 H
Calcium 8.7
Total Bilirubin 1.6 H
AST 35
ALT 29
Alkaline Phosphatase 50
Vital Signs:
Vital Signs
Temp Pulse Resp BP Pulse Ox
98.3 F 104 14 133/73 95
06/25/25 07:39 06/25/25 07:39 06/25/25 07:39 06/25/25 07:39 06/25/25 07:39
I&O
06/24/25 06/25/25 06/26/25
06:59 06:59 06:59
Intake Total 1500 / 1500
Balance 1500 / 1500
Review of Systems
-
History Source: Patient
All other systems: Reviewed and negative
Physical Exam
-
General: Comfortable
HEENT: Normocephalic
Respiratory: Clear to Auscultation
GI: Soft, Nontender and Nondistended
Musculoskeletal: No Clubbing, No Cyanosis and No Edema
Neuro: Awake, Alert, Oriented and AO x 3
Psych: Calm
--- NOTE | 2025-06-25 10:55 | CM ---
Addendum entered by Ally Kline 06/26/25 15:16:
Authorization #[id number] approved for [facility] for DOS 06/26-07/01/2025. Ambulance transport requested, waiting for transport time which was delayed due to MD needing GI consult. IMM signed by pt's daughter, copy provided and signed form
placed in chart.
Original Note:
PT OT indicates SNF
As per care port :[facility] accepted her
Spoke with efren Dominguez [phone] and pt requested [facility]
LM with trino from [facility] requested NPIs report fax
Will need auth
MD indicates ready for discharge tomorrow
PLAN [facility] after auth obtained
[2025-06-25] MEDS: PEPCID 20 MG PO (17:18)
[2025-06-25] MEDS: NON-FORMULARY ITEM 1 DROP BOTH EYES (20:12)
[2025-06-25 20:35] LABS: Hepatitis B Surface Antigen Negative (Negative)
[2025-06-25 20:53] LABS: Hepatitis C Antibody Negative (Negative)
[2025-06-25] MEDS: XALATAN OPHTHALMIC SOLUTION 1 DROP BOTH EYES (20:58)
[2025-06-26 02:50] VITALS: BP 164/80
[2025-06-26 05:58] LABS: ALT (SGPT) 27 U/L (0-35); AST (SGOT) 27 U/L (14-36); Albumin 3.3 g/dl (3.5-5.0); Alkaline Phosphatase 51 U/L (38-126); Blood Urea Nitrogen 25 mg/dl (7-17); Calcium 8.5 mg/dl (8.4-10.2); Carbon Dioxide 24 mmol/L (22-30); Chloride 109 mmol/L (98-107); Estimated Creatinine Clearance 50 ml/min; Glucose 131 mg/dl (70-99); Potassium 3.2 mmol/L (3.5-5.1); Sodium 140 mmol/L (135-145); Total Protein 5.5 g/dl (6.3-8.2); eGFR > 60.00
[2025-06-26 06:00] VITALS: BMI 30.1
[2025-06-26 08:12] VITALS: BP 160/89
[2025-06-26] MEDS: KCL 40 MEQ PO ×2 (08:17→08:21)
[2025-06-26] MEDS: LASIX 20 MG PO (08:19)
[2025-06-26] MEDS: PACERONE 200 MG PO ×2 (08:20→19:56)
[2025-06-26] MEDS: MUCINEX 600 MG PO (08:20)
[2025-06-26] MEDS: VIBRAMYCIN 100 MG PO ×2 (08:20→19:55)
[2025-06-26] MEDS: PROTONIX 40 MG PO (08:20)
[2025-06-26] MEDS: COLCHICINE 0.6 MG PO (08:20)
[2025-06-26] MEDS: ELIQUIS 5 MG PO ×2 (08:20→19:56)
[2025-06-26] MEDS: ROCEPHIN 1000 MG IV (08:21)
[2025-06-26] MEDS: TRUSOPT 2% OPHTHALMIC SOLUTION 1 DROP BOTH EYES ×2 (08:22→15:26)
[2025-06-26] MEDS: STERILE WATER FOR INJECTION 10 ML IV (08:22)
--- NOTE | 2025-06-26 08:51 | W.PN.CD ---
Today's Communication / Plan
-
Echo today => OK for discharge if Echo ok
Colchicine 0.6 mg daily to complete 3 month course
Amio 200 BID for 1 month then 200 mg a day
Lasix 20 mg a day
Given low K+ I will add Aldactone 25 mg a day, no KCl for home
BMP in 2 and 4 weeks
We will arrange another echo for about 2 weeks, sooner if needed and office f/u
Impression / Plan
-
Pericarditis with small pericardial effusion
- Stable effusion by echo 06/23/2025
- CHEST PAIN HAS RESOLVED
- Almost certainly from the pacemaker placement, likely atrial lead related as RV lead is in septum
- Colchicine (at lower dose due to amiodarone use, 0.6 mg once daily)
- No NSAID as she is on Eliquis
- Watch for progression to tamponade
- Plan to continue Eliquis
- When in sinus will check A lead function
- Hope Atrial lead will not need revision
- Serial echo's
Orthostatic symptoms, hypotension:
- Diuresis slowed to one time oral Lasix
Abnl CXR
- Still on ATBs
- On low dose oral Lasix
PAF
- Continue Amiodarone load
-would favor restoring sinus after recovery from acute pericarditis as op
- Continue Eliquis
Sick sinus syndrome
- Pacemaker placed 06/19/2025
HFpEF:
- chronic
- Continue chronic diuretic
- Add ALDACTONE
Mitral regurgitation
- Mod-severe on recent echo
- Recheck later when on good meds for HFpEF and less AFib (new Amiodarone/pacer support)
Subjective: Chest pain resolved. Rates in AFib OK at about 100
Physical Exam
Vital Signs/Labs
Vital Signs
Temp Pulse Resp BP Pulse Ox
97.8 F 105 14 160/89 95
06/26/25 08:12 06/26/25 08:12 06/26/25 08:12 06/26/25 08:12 06/26/25 08:12
06/25/25 06/26/25 06/27/25
06:59 06:59 06:59
Actual Weight 80.343 kg 81.919 kg
06/24/25 05:05
06/26/25 05:12
Triglycerides 86 mg/dl (10-149) 06/23/25 05:08
LDL Cholesterol, Calc 99 mg/dl 06/23/25 05:08
VLDL Cholesterol, Calc 17 mg/dl (0-30) 06/23/25 05:08
HDL Cholesterol 30 mg/dl 06/23/25 05:08
Free T4 1.83 ng/dl (0.78-2.19) 06/23/25 05:08
06/22/25 06/22/25
15:19 15:39
Roy-C-Rwdigkwzzln Pept 4730 Cancelled
Physical Exam
Constitutional: No acute distress
EENT: Anicteric
Cardiovascular: Rhythm & rate is regular, Rhythm/rate is irregular, S1S2 is normal and Rub absent
Respiratory: Respiratory effort normal and Lungs clear to auscul.
GI: Soft and Distention absent
Neuro/Psych: AO x 3
Other: Cardiac Device Site (dressing removed, no bleeding, no hematoma, steri-strips intact with dried old blood noted, minimal ecchymosis)
Data Reviewed
-
Date of Service: June 26, 2025
[2025-06-26] MEDS: ALDACTONE 25 MG PO (10:18)
--- NOTE | 2025-06-26 11:43 | CM ---
Pt approved 5 days at [facility]. Certification number [id number].
CM to arrange ambulance transport for transfer to [facility].
[facility] Report: [phone]
[facility]
--- NOTE | 2025-06-26 11:51 | W.PN.HOSP.TC ---
Addendum entered and electronically signed by Benedicto Tejeda MD 06/26/25 14:57:
dont use billing under this PN, use d/c summary billing instead
Original Note:
Today's Communication/Plan
-
pendign GI eval
replete potassium
Assessment / Plan
Assessment / Plan
89yo F with PMHX of Afib, COPD, glaucoma, HFpEF, GERD, SSS s/p PPM 3 days before this admission came with worsening back pain across her shoulder blades on inhalation and generalized weakness and lightheadedness on ambulation, found pericardial
effusion, concerning for pericarditis and possible bibasilar pneumonia. HEad CT in ED showed possible evolving R insular subcortical stroke
Breast mass and need to follow up with established breast surgeon was discussed with daughter over tghe phone. Also discussed need in repeated LFT, eventual MRI brain, TFT - daughter verbalized understanding of the instructions
As per data coder operator: started on Aldactone and advised to cont colchicine for 3 months and Amio 200mg BID for 1 month and then switch to daily.
GI eval due to persistent unexplained bilirubinemia
A/P:
#Acute hypoxic insufficiency on admission 2/2 Possible bibasilar CAP
with leukocytosis and pleuritic pain - reasonable to treat as infectious pneumonia
COVID-19 and Influenza PCR neg
legionella and S.pneumonia Ag in urine WNL
Rocephin/DOxy
CTA chest without pulmonary embolism, however study is motion degraded
weaned off O2 as of 06/25/25
#Pericardial effusion
#SSS s/p PPM
#AFib wit RVR on admission
#Chronic HFpEF
without tamponade
serial Echo
telemetry
Colchicine
Card consult: Echo on 06/26/25, if without changes - D/C as per card
Cont Amiodarone
Lasix changed to daily from BID
CRP 258.3
ESR 75
cont outpatient serial ESR/CRP
#Acute CVA
CT head: Small, localized focus of diminished attenuation measuring approximately 9 mm appears slightly more pronounced associated with the right insular subcortical white matter, raising possibility of evolving ischemic infarct
cont Eliquis
Hx of leg weakness with Zetia and statin - consider PCSK9 inh as outpatient
Cannot do MRI due to recent PPM placement
US carotid with <50% stenosis
Neurochecks
follow Neurology recommendations: cont Eliquis
HgbA1c 5.9% - low carb diet since criteria for pre-DM
LDL 99
#Subclinical hypothyroidism
repeat TSH in 2-3 weeks with PCP
#mild mostly indirect bilirubinemia
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
no RUQ abd pain
LDH and retics WNL - Gilbert? improving. Outpatient LFT follow up with PCP
follow LFT
US RUQ: Common bile duct is dilated, measuring 10 mm in diameter. Consider contrast-enhanced MRI and MRCP of the abdomen to evaluate etiology of biliary ductal obstruction. Cholelithiasis without evidence of acute cholecystitis. Unable to do MRI at
this time 2/2 PPM, but no clinical signs of cholecystitis bedside - no RUQ pain and alk.phos WNL
GI consult
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
cont to follow with previously established oncologist
#mild anemia of chronic disease
follow CBC
check FOBT, but stool is reportedly brown
#Glaucoma
#COPD not in exacerbation
cont home meds
DVT ppx Eliquis
DNR/DNI
I have spent at least 36min reviewing chart, test results, communication with consultants and providing direct patient care
Anticipated Discharge: Within 24 hours
Subjective/Interval History
-
Date of Service: June 26, 2025
Objective Data
-
Labs:
Laboratory Results
06/26/25
05:12
Sodium 140
Potassium 3.2 L
Chloride 109 H
Carbon Dioxide 24
BUN 25 H
Creatinine 0.8
Glucose 131 H
Calcium 8.5
Total Bilirubin 1.6 H
AST 27
ALT 27
Alkaline Phosphatase 51
Vital Signs:
Vital Signs
Temp Pulse Resp BP Pulse Ox
97.8 F 105 14 160/89 95
06/26/25 08:12 06/26/25 08:12 06/26/25 08:12 06/26/25 08:12 06/26/25 08:12
I&O
06/25/25 06/26/25 06/27/25
06:59 06:59 06:59
Intake Total 1500 / 1500 840 / 840
Balance 1500 / 1500 840 / 840
Review of Systems
-
History Source: Patient
All other systems: Reviewed and negative
Physical Exam
-
General: No Apparent Distress
HEENT: Normocephalic
Cardiac: Regular Rhythm
GI: Soft, Nontender and Nondistended
Musculoskeletal: No Clubbing, No Cyanosis and No Edema
Neuro: Awake, Alert, Oriented and AO x 3
Psych: Calm
[2025-06-26 11:55] VITALS: BP 124/85
--- NOTE | 2025-06-26 13:05 | W.DCSUMMARY ---
Discharge Summary
Discharge Data
Date of Admission: 06/22/25
Date of Discharge: 06/26/25
-
Pending Results: No
Hospital Course
89yo F with PMHX of Afib, COPD, glaucoma, HFpEF, GERD, SSS s/p PPM 3 days before this admission came with worsening back pain across her shoulder blades on inhalation and generalized weakness and lightheadedness on ambulation, found pericardial
effusion, concerning for pericarditis and possible bibasilar pneumonia. HEad CT in ED showed possible evolving R insular subcortical stroke
Breast mass and need to follow up with established breast surgeon was discussed with daughter over tghe phone. Also discussed need in repeated LFT, eventual MRI brain, TFT - daughter verbalized understanding of the instructions
As per commonwealth attorney: started on Aldactone and advised to cont colchicine for 3 months and Amio 200mg BID for 1 month and then switch to daily. Scheduled for BMP in 2 and 4 weeks upon d/c and Echo on 07/03/25
GI eval due to persistent unexplained bilirubinemia recommended outpatient follow up and MRI abd. Zofran for nausea presumably caused by Amiodarone
Weaned off O2, remained afebrile with normalized WBC - switched to oral Abx
I have spent at least 36min reviewing chart, test results, communication with consultants and providing direct patient care
Patient was managed for:
#Acute hypoxic insufficiency on admission 2/2 Possible bibasilar CAP
#Pericardial effusion
#SSS s/p PPM
#AFib wit RVR on admission
#Chronic HFpEF
#Acute CVA
#Subclinical hypothyroidism
#mild mostly indirect bilirubinemia
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
#mild anemia of chronic disease
#Glaucoma
#COPD not in exacerbation
Discharge Plan
-
Patient Disposition: Alf/SNF
Discharge Diagnosis/Procedures: pneumonia, CHF
Diet: Low Cholesterol
Blood Work: BMP 2 and 4 weeks- sent electronically. Follow with PCP for thyroid function tests in 2-3 weeks
Others Tests: Echo scheduled for 07/03/25 at 4 PM at [facility] ([address], [place], [place], [address]). [phone]
Referrals:
Ching Anderson CRNP [Specified Professional Personl, Cardiology] - 07/08/25 1:40 pm
Jamie Mireles MD [Family Provider, Internal Medicine]
Referral Note: check TFT and LFT (mild bilirubinemia) in 2-3 weeks, consider MRI in 3-4 weeks to eval signs of evolving stroke on CT
Declan Acevedo MD [Active, Gastroenterology] - in one to two weeks
Prescriptions:
New
spironolactone 25 mg Tablet
25 mg PO DAILY Qty: 30 0RF
colchicine 0.6 mg Tablet
0.6 mg PO DAILY Qty: 90 0RF
furosemide 20 mg Tablet
20 mg PO DAILY Qty: 30 0RF
doxycycline hyclate 100 mg Capsule
100 mg PO Q12 Qty: 8 0RF
cefdinir 300 mg capsule
300 mg PO Q12H Qty: 8 0RF
ondansetron 4 mg tablet,disintegrating
4 mg PO Q8H PRN (Reason: nausea and vomiting) Qty: 30 0RF
Continued
mmjkyaoifhj-pyaladole-gpc C-Mn 1 TAB tablet
1 tab PO BID
omeprazole 20 MG tablet,delayed release (DR/EC)
20 mg PO DAILYPRN PRN (Reason: gerd)
cholecalciferol (vitamin D3) [Vitamin D3] 1,000 UNITS tablet
1,000 units PO DAILY
magnesium oxide 400 MG tablet
400 mg PO QPM
Prevagen 1 CAPSULE Capsule
1 cap PO DAILY
famotidine [Pepcid AC] 20 MG tablet
20 mg PO QPM
omega 7-awq-tdy-fish oil [Fish Oil] 1,200 (144-216) mg Capsule
1 cap PO BID
albuterol sulfate 90 mcg/actuation Hfa Aerosol Inhaler
2 inh INHALATION R Q6HPRN PRN (Reason: SOB, Wheezes)
latanoprost [Xalatan] 0.005 % Drops
1 drp BOTH EYES HS
dorzolamide 2 % Drops
1 drp BOTH EYES TID
Rhopressa 0.02 % Drops
1 drp BOTH EYES QPM
Eliquis 5 MG tablet
5 mg PO BID Qty: 0 0RF
therapeutic multivitamin Tablet
1 tab PO DAILY
polyethylene glycol 3350 [Miralax] 17 gram Powder In Packet
17 g PO DAILYPRN PRN (Reason: constipation)
acetaminophen [Tylenol Extra Strength] 500 mg Tablet
1,000 mg PO Q6HPRN PRN (Reason: mild pain)
amiodarone [Pacerone] 200 mg Tablet
200 mg PO BID Qty: 60 11RF
Rx Instructions:
continue 200mg BID for 30 days, then switch to daily
Discontinued
furosemide 20 mg tablet
20 mg PO BID
Discharge Orders:
Discharge Patient (As Directed); Ordered 06/26/25
Ordered By: Benedicto Tejeda
Discharge Date and Time
Print Language: MALAY
--- NOTE | 2025-06-26 14:34 | CON.GI ---
Addendum entered and electronically signed by Declan Acevedo MD 06/26/25 19:47:
The patient was seen and examined by me independently in collaboration with the nurse practitioner.
Past medical history/social history/medications/allergies/family history reviewed.
Lab data and imaging data reviewed.
89-year-old female past medical history as below with recent pacemaker June 19 admitted with shortness of breath, cough found to have pericarditis with small pericardial effusion. She has been having some nausea with the amiodarone. GI is
asked to consult regarding abdominal ultrasound which showed dilated common bile duct to 10 mm. Also has some gallstones. Her labs were significant for total bilirubin of 1.6 with direct of 0.5, AST, ALT, alkaline phosphatase are all normal.
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 She denies any abdominal pain. Given her age and comorbidities, I would recommend an MRI as noninvasive way to evaluate her common bile duct given no pain, normal LFTs but this cannot be done for
30 days due to her recent pacemaker and her daughter has a scheduled as outpatient at that time. In regards to her nausea, this seems to be related to her medications. I discussed with both her winder fixer who recommended decreasing the dose of
amiodarone. I checked her QTc and this is normal so I also added on Zofran she can take as needed.
At this time, GI will sign off. Please call with any questions or issues.
Original Note:
Consultation
-
Date/Time Consultation Requested: 06/26/25 08 37
Date/Time Consultation Performed: 06/26/2025 1400
Requesting Provider: Dr. Tejeda
Performing Provider: Dr. Acevedo/DELORES Palmer
Reason for Consultation: elevated bilirubin
Medical History
Chief Complaint / HPI
Chief Complaint: Cough shortness of breath
History of Present Illness:
89-year-old female past medical history of obstructive sleep apnea on CPAP, A-fib on Eliquis, hyperlipidemia, HFpEF, GERD, breast cancer status postlumpectomy, asthma, recent pacemaker placement on 06/19/2025, recent fall just over a week ago with
laceration to the head who was admitted on 06/22/2025 for increased shortness of breath, dyspnea on exertion and cough. Patient found to have pericarditis with small pericardial effusion. Started on colchicine at lower dose. Also recently started
on amiodarone which she states has caused her to have some nausea. She also has been treated with doxycycline and ceftriaxone. Complaining of some gastroesophageal reflux symptoms. Noted to have a total bilirubin of 2.7 with a direct of 0.6.
Normal transaminases. Asked to evaluate for the same. The patient's total bilirubin has gone down to 1.6 with a direct of 0.5. Transaminases always remain the same and normal. The patient did have an ultrasound of the abdomen, this showed normal
liver echogenicity, 2.3 cm liver cyst. Multiple stones within the gallbladder. No gallbladder wall thickening or pericholecystic fluid. Negative Martin sign. CBD is dilated at 10 mm however the patient is 89 years old. She denies any acholic
stools or bilirubinuria. She states she is able to eat fatty foods without any difficulty and [id number] loves cheese cake and pizza. She is having some difficulty with nausea since starting the amiodarone. She does state that yogurt is okay.
Otherwise she denies any fevers, chills, vomiting, melena, hematochezia, dysphagia or odynophagia.
Past Medical History
Past Medical History: Other (Obstructive sleep apnea, A-fib, hyperlipidemia, HFpEF, GERD, breast cancer)
Past Surgical History: Other (Mohs surgery, left hip replacement, right lumpectomy, LEEP, glaucoma surgery, right ankle repair, laser surgery, pacemaker)
Social History
Tobacco: Non-Smoker
Alcohol: None
Drug: None
Living: With Family
Family History
Family History: Other (Family members with colon cancer,)
Allergies / Home Medications
Allergy/AdvReac Type Severity Reaction Status Date / Time
Iodinated Contrast Media (IV Allergy Severe Hives, Verified 06/19/25 08:44
Dye, Iodine Containing) fever,
swollen
joints
prochlorperazine (From Allergy Severe Itching of Verified 06/19/25 08:44
Compazine) palm and
feet
atorvastatin AdvReac Severe Leg Verified 06/19/25 08:44
Weakness
ezetimibe (Ezetimibe) AdvReac Severe Leg Verified 06/19/25 08:44
Weakness
rosuvastatin (Rosuvastatin) AdvReac Severe muscle Verified 06/19/25 08:44
aches
Lidocaine Allergy Severe Rash, Uncoded 06/19/25 08:44
Redness
sensitive to most BP Allergy Unknown patient Uncoded 06/19/25 08:44
medications denies
�Medication �Instructions �Recorded
ttyydaejcvd-ufjvjclmm-ism C-Mn 750 1 tab PO BID 08/12/10
mg-600 mg-55 mg-5 mg tablet
omeprazole 20 mg tablet,delayed 20 mg PO DAILYPRN PRN gerd 11/13/11
release
Prevagen 1 cap PO DAILY 03/07/22
cholecalciferol (vitamin D3) 25 1,000 units PO DAILY 03/07/22
mcg (1,000 unit) tablet (Vitamin
D3)
magnesium oxide 400 mg PO QPM 03/07/22
famotidine 20 mg tablet (Pepcid AC) 20 mg PO QPM 03/10/22
albuterol sulfate 90 mcg/actuation 2 inh inhalation R Q6HPRN PRN SOB, 08/02/22
aerosol inhaler Wheezes
omega 3-pgf-ipu-fish oil 1,200 mg 1 cap PO BID 08/02/22
(144 mg-216 mg) capsule (Fish Oil)
dorzolamide 2 % eye drops 1 drp BOTH EYES TID 06/19/25
latanoprost 0.005 % eye drops 1 drp BOTH EYES HS 06/19/25
(Xalatan)
netarsudil 0.02 % eye drops 1 drp BOTH EYES QPM 06/19/25
(Rhopressa)
apixaban 5 mg tablet (Eliquis) 5 mg PO BID #0 tabs 06/20/25
acetaminophen 500 mg tablet 1,000 mg PO Q6HPRN PRN mild pain 06/22/25
(Tylenol Extra Strength)
polyethylene glycol 3350 17 gram 17 g PO DAILYPRN PRN constipation 06/22/25
oral powder packet (Miralax)
therapeutic multivitamin 1 tab PO DAILY 06/22/25
amiodarone 200 mg tablet (Pacerone) 200 mg PO BID #60 tabs 06/26/25
cefdinir 300 mg capsule 300 mg PO Q12H #8 caps 06/26/25
colchicine 0.6 mg tablet 0.6 mg PO DAILY #90 tabs 06/26/25
doxycycline hyclate 100 mg capsule 100 mg PO Q12 #8 caps 06/26/25
furosemide 20 mg tablet 20 mg PO DAILY #30 tabs 06/26/25
spironolactone 25 mg tablet 25 mg PO DAILY #30 tabs 06/26/25
Review of Systems
-
All other systems: A 12 pt ROS was Negative except as stated above in HPI
Vital Signs
Temp Pulse Resp BP Pulse Ox
97.6 F 102 14 124/85 94
06/26/25 11:55 06/26/25 11:55 06/26/25 11:55 06/26/25 11:55 06/26/25 11:55
Physical Exam
Exam
General: No Apparent Distress
HEENT: Anicteric
Respiratory: Clear (Anterior)
Cardiac: Regular Rhythm
GI: Soft, Non Tender, Non Distended and Normal Bowel Sounds
Skin: Warm and Dry
Neuro: AO x 3
Psych: Calm
Results
WBC 9.1 10^3/uL (4.8-10.8) 06/24/25 05:05
Hgb 10.3 g/dL (12.0-16.0) L 06/24/25 05:05
Hct 32.3 % (37.0-47.0) L 06/24/25 05:05
MCV 100.3 fL (81.0-99.0) H 06/24/25 05:05
Plt Count 200 10^3/uL (130-400) D 06/24/25 05:05
Absolute Neuts (auto) 6.9 10^3/uL (1.4-6.5) H 06/24/25 05:05
Sodium 140 mmol/L (135-145) 06/26/25 05:12
Potassium 3.2 mmol/L (3.5-5.1) L 06/26/25 05:12
Chloride 109 mmol/L (98-107) H 06/26/25 05:12
Carbon Dioxide 24 mmol/L (22-30) 06/26/25 05:12
BUN 25 mg/dl (7-17) H 06/26/25 05:12
Creatinine 0.8 mg/dL (0.6-1.0) 06/26/25 05:12
Calcium 8.5 mg/dl (8.4-10.2) 06/26/25 05:12
Total Bilirubin 1.6 mg/dl (0.2-1.3) H 06/26/25 05:12
AST 27 U/L (14-36) 06/26/25 05:12
ALT 27 U/L (0-35) 06/26/25 05:12
Alkaline Phosphatase 51 U/L (38-126) 06/26/25 05:12
Hep Bs Antibody Negative 06/25/25 05:14
Hep B Core Total Ab Negative (Negative) 06/25/25 05:14
Hepatitis C Antibody Negative (Negative) 06/25/25 05:14
Diagnostic Image Results:
Prior GI Procedures:
EGD: 12/07/2021 - 2 cm hiatal hernia.
- Multiple fundic gland polyps.
- Gastritis. Biopsied.
- Normal duodenum.
Colonoscopy: 05/28/2019 - Non-bleeding external and internal hemorrhoids.
- Diverticulosis in the sigmoid colon and in the
descending colon.
- One 4 mm polyp in the transverse colon, removed with a
jumbo cold forceps. Resected and retrieved.
Colonoscopy 03/31/2014 A tattoo was seen in the cecum. A post-polypectomy
scar was found at the tattoo site.
- One 4 mm polyp in the distal ascending colon. Resected
and retrieved.
- Diverticulosis in the descending colon, in the
transverse colon and in the ascending colon.
- Diverticulosis in the sigmoid colon.
- Non-bleeding external internal hemorrhoids.
- Tortuous colon.
Endoscopy 03/31/2014 Normal duodenal bulb and 2nd part of the duodenum.
- Erythematous mucosa in the antrum. Biopsied.
- A few gastric polyps. Biopsied.
- Hiatus hernia.
- Normal cardia and gastric fundus.
- Z-line irregular, 36 cm from the incisors. Biopsied.
- Esophageal polyp(s) were found. Biopsied.
- Tortuous esophagus.
Assessment / Plan
-
89-year-old female past medical history of obstructive sleep apnea on CPAP, A-fib on Eliquis, hyperlipidemia, HFpEF, GERD, breast cancer status postlumpectomy, asthma, recent pacemaker placement on 06/19/2025, recent fall just over a week ago with
laceration to the head who was admitted on 06/22/2025 for increased shortness of breath, dyspnea on exertion and cough. Patient found to have pericarditis with small pericardial effusion. Started on colchicine at lower dose. Also recently started
on amiodarone which she states has caused her to have some nausea. She also has been treated with doxycycline and ceftriaxone. Complaining of some gastroesophageal reflux symptoms. Noted to have a total bilirubin of 2.7 with a direct of 0.6.
Normal transaminases. Asked to evaluate for the same. Patient without any right upper quadrant pain. Bilirubin is all indirect. No transaminase elevation. She cannot have an MRI for at least 30 days given recent placement of pacemaker.
Daughter already has MRI set up for 30 days from now.
Impression:
Elevated total bilirubin with normal direct
Dilated bile duct, however patient 89 years old may be relative to age
Cholelithiasis not symptomatic
Nausea associated with amiodarone use
GERD
Pericardial effusion
Sick sinus syndrome status post permanent pacemaker,
A-fib
HFpEF
CVA
Plan:
- Patient already has MRI abdomen as an outpatient
- Can repeat labs with PCP
- Continue pantoprazole for GERD
-
-
Thank you for consultation and allowing me to participate in the patient's care. Please call the [facility] physician during the after hours with any questions or concerns.
[2025-06-26] MEDS: FLUZONE HIGH-DOSE 2025-26 0.5 ML IM (15:18)
[2025-06-26 15:54] VITALS: BP 147/92
[2025-06-26] MEDS: PEPCID 20 MG PO (17:50)
[2025-06-26 19:00] VITALS: BP 147/91
[2025-06-26 20:01] VITALS: BP 134/77
[2025-06-26] MEDS: MUCINEX PO (20:05)
--- NOTE | 2025-06-26 20:28 | TRANSFER ---
Pt picked up by Acute care for d/c to [facility]. Updated DC instructions provided to crew. All pt questions answered at this time. 2xIV and tele removed. no pt belongings in the room. Eye drops sent with daughter earlier in the day.
== END 2025-06-26 20:28 | DRG 314 ==
LOC: 3 WEST ACU 18:06
PROVIDERS: Nurse Practitioner; Registered Nurse; ADMITTING PHYSICIAN Internal Medicine; ATTENDING PHYSICIAN Internal Medicine; CONSULT PHYSICIAN Internal Medicine Cardiovascular Disease; CONSULT PHYSICIAN Internal Medicine Gastroenterology; CONSULT PHYSICIAN Psychiatry & Neurology Neurology; EMERGENCY PHYSICIAN Emergency Medicine; FAMILY PHYSICIAN Internal Medicine Geriatric Medicine
DX: T82.7XXA Infection and inflammatory reaction due to other cardiac and vascular devices, implants and grafts, initial encounter (principal); I63.9 Cerebral infarction, unspecified; J18.9 Pneumonia, unspecified organism; J96.01 Acute respiratory failure with hypoxia; J44.0 Chronic obstructive pulmonary disease with (acute) lower respiratory infection; I50.32 Chronic diastolic (congestive) heart failure; I31.39 Other pericardial effusion (noninflammatory); G47.33 Obstructive sleep apnea (adult) (pediatric); K21.9 Gastro-esophageal reflux disease without esophagitis; E78.00 Pure hypercholesterolemia, unspecified; I48.0 Paroxysmal atrial fibrillation; I11.0 Hypertensive heart disease with heart failure; M81.0 Age-related osteoporosis without current pathological fracture; K59.00 Constipation, unspecified; F41.9 Anxiety disorder, unspecified; K22.4 Dyskinesia of esophagus; K22.89 Other specified disease of esophagus; K44.9 Diaphragmatic hernia without obstruction or gangrene; K64.4 Residual hemorrhoidal skin tags; K64.8 Other hemorrhoids; D53.9 Nutritional anemia, unspecified; I95.1 Orthostatic hypotension; E03.8 Other specified hypothyroidism; D63.8 Anemia in other chronic diseases classified elsewhere; G62.9 Polyneuropathy, unspecified; K76.89 Other specified diseases of liver; I34.0 Nonrheumatic mitral (valve) insufficiency; K83.8 Other specified diseases of biliary tract; Y83.1 Surgical operation with implant of artificial internal device as the cause of abnormal reaction of the patient, or of later complication, without mention of misadventure at the time of the procedure; Y71.2 Prosthetic and other implants, materials and accessory cardiovascular devices associated with adverse incidents; S01.01XA Laceration without foreign body of scalp, initial encounter; W19.XXXA Unspecified fall, initial encounter; Y93.9 Activity, unspecified; Y92.9 Unspecified place or not applicable; Z66 Do not resuscitate; Z60.2 Problems related to living alone; Z96.1 Presence of intraocular lens; Z96.642 Presence of left artificial hip joint; Z88.8 Allergy status to other drugs, medicaments and biological substances; Z91.041 Radiographic dye allergy status; Z85.3 Personal history of malignant neoplasm of breast; Z95.0 Presence of cardiac pacemaker; Z87.891 Personal history of nicotine dependence; Z79.01 Long term (current) use of anticoagulants; Z87.19 Personal history of other diseases of the digestive system; Z80.0 Family history of malignant neoplasm of digestive organs; Z79.899 Other long term (current) drug therapy; Z11.52 Encounter for screening for COVID-19
CPT/HCPCS: 70450; 71046; 71275; 74230; 76700; 80048; 80053; 80061; 82248; 82607; 82728; 82746; 83010; 83036; 83540; 83550; 83615; 83880; 84439; 84443; 84484; 85025; 85027; 85045; 85652; 86140; 86704; 86706; 86803; 87040; 87340; 87449; 87502; 87641; 87811; 87899; 90662; 92523; 92526; 92610; 92611; 93005; 93308; 93880; 96365; 97116; 97129; 97163; 97167; 97530; 97535; 99285; G0008; Q9967

== ENCOUNTER → 2025-07-03 15:30 | Outpatient (REF) | payer OTHER, SELFPAY | LOC: HWRCS 15:30 | PROVIDERS: ATTENDING PHYSICIAN Student in an Organized Health Care Education/Training Program; FAMILY PHYSICIAN Internal Medicine Geriatric Medicine | DX: Z95.0 Presence of cardiac pacemaker (principal); I31.39 Other pericardial effusion (noninflammatory) | CPT/HCPCS: 93308 ==

== ENCOUNTER 2025-07-27 06:57 | Day surgery (SDC) | payer OTHER, SELFPAY ==
--- NOTE | 2025-07-27 08:26 | W.PN.UPDATE ---
Update Note
Progress Note Update
Pacemaker interrogated by me after cardioversion
P 0.8 mV, A imp 361 ohms, A threshold 1.75 V at 0.4 ms
R 12.4 mV, V imp 627 ohms, V threshold 1 V at 0.4 ms
Given orthostasis at rehab I will have a follow up echo done today
If echo ok I will add midodrine for a 1 Month course
== END 2025-07-27 09:20 | disposition home or self-care (01) ==
LOC: CATH 06:57
PROVIDERS: ATTENDING PHYSICIAN Internal Medicine; FAMILY PHYSICIAN Internal Medicine Geriatric Medicine; OTHER PHYSICIAN Internal Medicine Cardiovascular Disease
DX: I48.0 Paroxysmal atrial fibrillation (principal); I11.0 Hypertensive heart disease with heart failure; I50.32 Chronic diastolic (congestive) heart failure; Z79.01 Long term (current) use of anticoagulants; Z79.899 Other long term (current) drug therapy; I07.1 Rheumatic tricuspid insufficiency; I31.39 Other pericardial effusion (noninflammatory)
CPT/HCPCS: 93308; 93321; 93325; 92960; 93005

== ENCOUNTER → 2025-08-06 09:16 | Outpatient (REF) | payer OTHER, SELFPAY ==
[2025-08-06 09:55] LABS: Hematocrit 35.5 % (37.0-47.0); Hemoglobin 10.9 g/dL (12.0-16.0); Mean Corp Hgb Conc. 30.7 g/dL (33.0-37.0); Mean Corpuscular Volume 106.0 fL (81.0-99.0); Platelet Count 219 10^3/uL (130-400); Red Cell Dist. Width 17.7 % (11.5-14.5)
[2025-08-06 10:19] LABS: Blood Urea Nitrogen 19 mg/dl (7-17); Calcium 8.8 mg/dl (8.4-10.2); Carbon Dioxide 29 mmol/L (22-30); Chloride 106 mmol/L (98-107); Glucose 107 mg/dl (70-99); HDL Cholesterol 27 mg/dl; LDL Cholesterol, Calculated 121 mg/dl; Potassium 4.0 mmol/L (3.5-5.1); Sodium 137 mmol/L (135-145); Very Low Density Lipoprotein 39 mg/dl (0-30); eGFR > 60.00
== END ==
LOC: OLABMERCHI 09:16
DX: I48.0 Paroxysmal atrial fibrillation (principal); I10 Essential (primary) hypertension
CPT/HCPCS: 36415; 80048; 80061; 85027

== ENCOUNTER → 2025-08-06 16:09 | Outpatient (REF) | payer OTHER, SELFPAY ==
[2025-08-07 18:22] LABS: Urine Character Cloudy (Clear)
[2025-08-07 19:16] LABS: Urine Squamous Cell 26-30 /LPF (Few)
[2025-08-07 19:17] LABS: Urine Red Blood Cell 0-2 /HPF (0-2)
== END ==
LOC: OLABMERCHI 16:09
PROVIDERS: ATTENDING PHYSICIAN Hospitalist
DX: N39.0 Urinary tract infection, site not specified (principal)
CPT/HCPCS: 81003; 81015; 87086

== ENCOUNTER → 2025-08-12 15:00 | Outpatient (REF) | payer OTHER, SELFPAY ==
[2025-08-13 10:43] LABS: Urine Character Clear (Clear)
[2025-08-13 11:35] LABS: Urine Squamous Cell 26-30 /LPF (Few)
== END ==
LOC: OLABMERCHI 15:00
PROVIDERS: ATTENDING PHYSICIAN Hospitalist
DX: R35.0 Frequency of micturition (principal)
CPT/HCPCS: 81003; 81015

== ENCOUNTER → 2025-08-14 10:45 | Outpatient (REF) | payer OTHER, SELFPAY | LOC: RCS 10:45 | PROVIDERS: ATTENDING PHYSICIAN Nurse Practitioner; FAMILY PHYSICIAN Hospitalist | DX: I31.39 Other pericardial effusion (noninflammatory) (principal) | CPT/HCPCS: 93308; 93321; 93325 ==

== ENCOUNTER → 2025-08-18 11:03 | Outpatient (REF) | payer OTHER, SELFPAY ==
[2025-08-18 14:04] LABS: ALT (SGPT) 22 U/L (0-35); AST (SGOT) 25 U/L (14-36); Albumin 4.1 g/dl (3.5-5.0); Alkaline Phosphatase 54 U/L (38-126); Total Protein 6.2 g/dl (6.3-8.2)
== END ==
LOC: REG 11:03
PROVIDERS: ATTENDING PHYSICIAN Nurse Practitioner
DX: R17 Unspecified jaundice (principal)
CPT/HCPCS: 36415; 80076